=== PATIENT | male | born 1955 | race Caucasian/White ===

== ENCOUNTER → 2017-04-08 | Outpatient (CLI) | payer BC ==
[~2017-04-08] MED LIST: ASPCH81; FLM4 PO; LEVO100T7 PO; NIAC1TAB56 PO; OMEP20CA9 PO; PLV75 PO; ROSU40TA PO; TPRSR/100 PO
[2017-04-08 12:11] LABS: BASO % 0.5 %; BASO ABS # 0.04 K/uL (0-0.2); COMPLETE YES; EOS % 6.7 %; HEMATOCRIT 43.1 % (42-52); IG% 0.1 %; LYMPH % 38.7 %; LYMPH ABS # 3.11 K/uL (1.2-3.4); MEAN CELL VOLUME 91.1 fL (80-100); MEAN CORPUSCULAR HEMOGLOBIN 30.7 pg (25-34); MEAN CORPUSCULAR HGB CONC 33.6 g/dl (32-36); MEAN PLATELET VOLUME 10.7 fL (7.4-10.4); MONO % 13.6 %; NEUT % 40.4 %; PLATELET COUNT 230 K/uL (130-400); RED BLOOD COUNT 4.73 M/uL (4.7-6.1); WHITE BLOOD COUNT 8.03 K/uL (4.8-10.8)
[2017-04-08 12:29] LABS: ALT/SGPT 26 U/L (12-78); BLOOD UREA NITROGEN 13 mg/dl (7-18); BUN/CREATININE RATIO 13.7 (10-20); CALCIUM 8.8 mg/dl (8.5-10.1); CARBON DIOXIDE 25 mmol/L (21-32); CHLORIDE 110 mmol/L (98-107); CHOLESTEROL 148 mg/dl (0-200); CREATININE 0.93 mg/dl (0.60-1.40); GLUCOSE 113 mg/dl (70-99); POTASSIUM 3.9 mmol/L (3.5-5.1); SODIUM 141 mmol/L (136-145); TRIGLYCERIDES 129 mg/dl (0-150); VERY LOW DENSITY LIPOPROT CALC 26 mg/dl
[2017-04-08 12:40] LABS: ALB/GLOB RATIO 1.1 (0.9-2); ALKALINE PHOSPHATASE 49 U/L (45-117); AST/SGOT 27 U/L (15-37); CHOLESTEROL/HDL RATIO 3.3; HDL CHOLESTEROL 45 mg/dl; LDL CHOLESTEROL CALCULATED 77 mg/dl
== END | disposition home or self-care (01) ==
LOC: C.LABBFT 09:27
PROVIDERS: ATTEND Internal Medicine Cardiovascular Disease
DX: Z12.5 Encounter for screening for malignant neoplasm of prostate (principal); I10 Essential (primary) hypertension

== ENCOUNTER → 2017-10-03 | Outpatient (CLI) | payer BC ==
[2017-10-03 12:39] LABS: BASO % 0.5 %; BASO ABS # 0.03 K/uL (0-0.2); EOS % 8.3 %; EOS ABS # 0.55 K/uL (0-0.5); HEMATOCRIT 45.2 % (42-52); HEMOGLOBIN 15.6 g/dL (14.0-18.0); IG# 0.01 K/uL (0.00-0.02); LYMPH % 45.2 %; LYMPH ABS # 3.01 K/uL (1.2-3.4); MEAN CELL VOLUME 91.9 fL (80-100); MEAN CORPUSCULAR HEMOGLOBIN 31.7 pg (25-34); MEAN CORPUSCULAR HGB CONC 34.5 g/dl (32-36); MEAN PLATELET VOLUME 10.8 fL (7.4-10.4); MONO % 11.7 %; MONO ABS # 0.78 K/uL (0.11-0.59); NEUT % 34.1 %; NEUT ABS # 2.28 K/uL (1.4-6.5); PLATELET COUNT 205 K/uL (130-400); RED CELL DISTRIBUTION WIDTH CV 13.5 % (11.5-14.5); RED CELL DISTRIBUTION WIDTH SD 45.1 fL (36.4-46.3); WHITE BLOOD COUNT 6.66 K/uL (4.8-10.8)
[2017-10-03 12:56] LABS: ALBUMIN 3.6 gm/dl (3.4-5.0); ALT/SGPT 31 U/L (12-78); AST/SGOT 27 U/L (15-37); BLOOD UREA NITROGEN 15 mg/dl (7-18); CALCIUM 9.1 mg/dl (8.5-10.1); CARBON DIOXIDE 27 mmol/L (21-32); CREATININE 0.92 mg/dl (0.60-1.40); GLUCOSE 98 mg/dl (70-99); SODIUM 140 mmol/L (136-145)
[2017-10-03 12:58] LABS: ALKALINE PHOSPHATASE 62 U/L (45-117); TOTAL PROTEIN 7.4 gm/dl (6.4-8.2)
[2017-10-04 11:22] LABS: EBV EARLY ANTIGEN AB < 9.00 U/ML
== END | disposition home or self-care (01) ==
LOC: C.LABBFT 09:44
PROVIDERS: ATTEND Nurse Practitioner
DX: R53.83 Other fatigue (principal); K12.1 Other forms of stomatitis; J02.9 Acute pharyngitis, unspecified

== ENCOUNTER → 2018-04-18 | Outpatient (CLI) | payer BC | END | disposition home or self-care (01) | LOC: C.LAB1850 13:09 | PROVIDERS: ATTEND Physician Assistant Medical | DX: E78.5 Hyperlipidemia, unspecified (principal); I25.10 Atherosclerotic heart disease of native coronary artery without angina pectoris ==

== ENCOUNTER 2024-06-08 09:19 | Inpatient (IN) ==
--- NOTE | 2024-06-08 09:59 | Emergency Department Note ---
Impression & Plan Heart block AV second degree, Chest pain on exertion ED Provider Note Name: ANA LAURA HAWKINS Age: 68 Sex: Male Arrives Via: Walk-In Informant: Patient ED Provider: David Gracia MD Chief Complaint: chest pain Impression: as per impressions above Medical Decision Makin-year-old gentleman with a history of CAD and stent 20 years ago. He arrives for evaluation of chest pain and shortness of breath with any exertion over the last 3-4 days. On arrival with no symptoms. EKG is reassuring. Initial labs are reassuring as well. During patient's time in the ER it was noted he at multiple times had development of second-degree heart block with any movement or exertion. Given these findings and his history hospitalist was consulted for further management. Triage/Nursing Notes reviewed by Me Differential:Cardiac ischemia, aortic dissection, pulmonary embolism, pneumothorax, pneumonia, pericarditis, myocarditis, esophageal rupture, GERD, cholecystitis, pancreatitis, musculoskeletal, as well as other pathologies. Vital Signs: reviewed and remarkable for no significant abnormalities Labs:ED labs Reviewed by me and remarkable for no significant abnormalities Imaging:X ray results are stated below per my interpretation: Chest: 1 view: No infiltrate, no effusion, normal cardiac border. EKG:As per my interpretation. Indication chest pain with exertion. Normal sinus rhythm at 63 and a QTc of 431. There is no ectopy nor ischemia. Patient has a right lower branch block. No significant change from 03/28/2023 EKG has a heart rate is slowed. Cardiac/Tele Monitoring: Cardiac Monitoring: An Order was placed for continuous cardiac monitoring. The monitor shows a rate of 60 with a normal sinus rhythm with episodes fo 2nd degree heart block. Consults:Discussed with Dr. Ramirez of [facility] service who will bring in for further management Plan: Disposition:Hospitalization. Condition: Good History of Present Illness: 68-year-old male arrives for evaluation of chest pain. Patient notes exertional chest pain over the last 3 to 4 days. Gradually worsening. Now associated with shortness of breath and dizziness with exertion. Notes he feels like he might pass out. Initially was also only occurring on heavy exertion such as mowing the lawn but now even just going up the stairs makes it worse. Denies any leg swelling or calf pain. No syncope. Denies any current headache, neck pain, fevers, chills, nausea, vomiting, palpitations or other concerning signs or symptoms. Patient notes a history of cardiac disease with an WA about 20 years ago on the bare-metal stent at that time. He takes aspirin 81 mg daily. Takes no other blood thinners. Past Medical History: CAD, dyslipidemia, GERD, hypothyroidism Home Medications:See Below Allergies:nkda Vitals:Blood Pressure: 132/78, Pulse 64, RR 14, T 36.5C, O2 97% on RA Physical Exam: GENERAL: Patient is well appearing and in no acute distress. RESPIRATORY: No dyspnea. Clear to auscultation and equal bilaterally. CARDIOVASCULAR: Regular rate and rhythm.No murmur appreciated. GASTROINTESTINAL: Abdomen soft, non-tender, no peritonitis. EXTREMITIES: Normal motion all extremities, no cyanosis, no edema. NEUROLOGIC: Alert and oriented. No focal neurologic deficits appreciated SKIN: No rash, no jaundice, no diaphoresis. PSYCH: Appropriate GCS: 15 ED Course: Times/Reassessments: stable. development of episodes 2nd degree heart block. David Gracia MD Past Med/Surg History Problem List (Updated 06/08/24 @ 17:52 by David Gracia MD) Chest pain on exertion (Acute) Heart block AV second degree (Acute) AV block Chest discomfort Prostate cancer screening encounter, options and risks discussed Encounter for health maintenance examination History of anterior wall myocardial infarction Elevated fasting glucose Presence of bare metal stent in LAD coronary artery Coronary artery disease Antiplatelet or antithrombotic long-term use Hypertension (Chronic) GERD (gastroesophageal reflux disease) (Chronic) Hypothyroidism (Chronic) Dyslipidemia (Chronic) Cervical neck pain with evidence of disc disease (Acute) Cervical spine degeneration (Acute) Medical History Psoriasis Degenerative disc disease BPH (benign prostatic hyperplasia) GERD (gastroesophageal reflux disease) Hypothyroidism Myocardial Infarction 2007 Hypertension Hyperlipidemia Myocardial infarction Surgical History History of colonoscopy (03/24/19) Dr. Hassan, eladio, recheck 10 years History of tooth extraction History of heart artery stent 2007>[address] MIDDLETON AT [facility] Family History Mother Family history of diabetes mellitus Ovarian cancer Aunt Cancer Leukemia Father Myocardial infarction Other Lung disease Denies family history of Prostate cancer Breast cancer Colorectal cancer Social History Smoking Status: Former smoker Tobacco Type: Cigarettes Cigarettes Per Day: 2.5; Second Hand Exposure: No; Do You Dip or Chew Tobacco: No; Tobacco Cessation Education Requested by Patient: No Hx Alcohol Use: Yes Alcohol type: beer Hx Substance Use: No Preferred Language: Nepalese Communication Ability: Effective Telephone Clerk Telegraph Office Required: No Beliefs That Will Affect Care: None Current Living Situation: Spouse current occupational status: employed 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 [employer] Other Information That Helps Us Care for You: No Feels Safe at Home: Yes Safety Concerns: Feels Safe At This Time Childhood Exposure to Second-Hand Smoke: Yes Diet: regular caffeine: Yes Dental Care, Regularly: Yes Physical Activity Frequency: 5-6 Times per Week Seatbelt Use: never Sunscreen Use: No Assistive Devices: Denture - Upper, Denture - Lower and Glasses Allergies Allergies Allergy/AdvReac Type Severity Reaction Status Date / Time No Known Allergies Allergy Mild Verified 06/08/24 12:42 Home Meds Home Medications Medication Instructions Recorded Confirmed aspirin 81 mg tablet,delayed 81 mg PO HS 03/17/19 06/08/24 release guselkumab 100 mg/mL subcutaneous 100 mg subcut .COMPLEX 04/22/19 06/08/24 syringe tamsulosin 0.4 mg capsule 0.4 mg PO QAM 01/14/24 06/08/24 fluticasone propionate 50 2 spray intranasal QAM 06/08/24 06/08/24 mcg/actuation nasal spray,suspension levothyroxine 125 mcg tablet 125 mcg PO QAM 06/08/24 06/08/24 Previous Rx's Medication Instructions Recorded nitroglycerin 0.4 mg sublingual 0.4 mg sublingual Q5M PRN chest 07/14/20 tablet pain #30 tabs pantoprazole 40 mg tablet,delayed 40 mg PO BID #180 tabs 05/29/21 release rosuvastatin 40 mg tablet (Crestor) 40 mg PO QPM #90 tabs 10/09/23 metoprolol succinate 25 mg 12.5 mg (1/2 x 25 mg) PO DAILY #45 10/31/23 tablet,extended release 24 hr tabs Results & Data (ED) Vital Signs Vital Signs - 24 hr 06/08/24 09:26 06/08/24 09:50 06/08/24 09:50 Temperature 36.5 C Temperature Source Temporal Artery Scan Pulse Rate 64 Pulse Rate [Apical] 65 Pulse Rhythm [Apical] Regular Pulse Strength [Apical] Normal Respiratory Rate 14 18 Respiratory Effort / Characteristics Non-Labored Respiratory Depth Normal Respiratory Pattern Regular Blood Pressure 132/78 Blood Pressure [Right Arm] 150/93 H Blood Pressure Mean 96 Blood Pressure Mean [Right Arm] 112 Blood Pressure Position [Right Arm] Sitting Pulse Oximetry 97 97 Oxygen Delivery Method Room Air Room Air Room Air Sepsis New/Unexplained Change in Mental Status No Sepsis Action Taken by Nursing No Action Required 06/08/24 09:50 06/08/24 10:09 06/08/24 11:20 Temperature Temperature Source Pulse Rate 68 38 L Pulse Rate [Apical] 57 L Pulse Rhythm [Apical] Regular Pulse Strength [Apical] Normal Respiratory Rate 16 Respiratory Effort / Characteristics Non-Labored Respiratory Depth Normal Respiratory Pattern Regular Blood Pressure Blood Pressure [Right Arm] 150/93 H Blood Pressure Mean Blood Pressure Mean [Right Arm] 112 Blood Pressure Position [Right Arm] Lying Pulse Oximetry 97 Oxygen Delivery Method Room Air Sepsis New/Unexplained Change in Mental Status Sepsis Action Taken by Nursing Laboratory Data 06/08/24 Unknown 06/08/24 Unknown Imaging Data Radiologist's Impression: Chest X-Ray 06/08/24 09:56 XR chest 1V portable CLINICAL HISTORY: Chest Pain TECHNIQUE: Single frontal radiograph of the chest was obtained. Comparison: Comparison is made to chest radiograph 09/19/2023 FINDINGS: No lines and tubes are seen. Cardiomegaly is noted. Prominence and cephalization of the vasculature is seen. Previously noted right midlung density is similar in appearance. No evidence of pleural effusion or pneumothorax. IMPRESSION: 1. Cardiomegaly and mild pulmonary edema. 2. Right midlung density is again seen. If there is clinical suspicion for nodule, CT chest performed on a nonemergent basis. ACT 112: Negative or not required by law. Electronically signed by: Manolo Castro M.D. 06/08/2024 10:21 AM Discharge Plan Visit Data Chief Complaint: Cardiac Assessment Stated Complaint: SOB, CHEST TIGHTNESS,DIZZY ED Provider: David Gracia Discharge Problem: Heart block AV second degree, Chest pain on exertion Patient Disposition: Admitted As Inpatient Discharge Instructions Interventions: ED Discharge Assessment Last Done: 06/08/24 13:50
--- NOTE | 2024-06-08 10:22 | XRay Report ---
XR chest 1V portable CLINICAL HISTORY: Chest Pain TECHNIQUE: Single frontal radiograph of the chest was obtained. Comparison: Comparison is made to chest radiograph 09/19/2023 FINDINGS: No lines and tubes are seen. Cardiomegaly is noted. Prominence and cephalization of the vasculature i s seen. Previously noted right midlung density is similar in appearance. No evidence of pleural effus ion or pneumothorax. IMPRESSION: 1. Cardiomegaly and mild pulmonary edema. 2. Right midlung density is again seen. If there is clinical suspicion for nodule, CT chest performe d on a nonemergent basis. ACT 112: Negative or not required by law. Electronically signed by: Manolo Castro M.D. 06/08/2024 10:21 AM
[2024-06-08 10:53] LABS: Basophils # (auto) 0.05 K/uL (0.00-0.20); Basophils % (auto) 0.6 %; Eosinophils % (auto) 10.4 %; Hematocrit (blood only) 43.9 % (42.0-52.0); Hemoglobin 14.3 g/dl (14.0-18.0); Immature Granulocytes # (auto) 0.01 K/uL (0.01-0.20); Immature Granulocytes % (auto) 0.1 %; Lymphocytes # (auto) 2.94 K/uL (1.20-3.40); Lymphocytes % (auto) 38.1 %; Mean Corpuscular Hemoglobin 29.4 pg (25.0-34.0); Mean Corpuscular Hgb Conc 32.6 g/dL (32.0-36.0); Mean Corpuscular Volume 90.3 fL (80.0-100.0); Mean Platelet Volume 10.7 fL (9.4-12.4); Monocytes # (auto) 0.83 K/uL (0.11-0.59); Monocytes % (auto) 10.8 %; Neutrophils # (auto) 3.09 K/uL (1.40-6.50); Platelet Count 252 K/uL (130-400); RDW Coefficient of Variation 13.1 % (11.5-14.5); RDW Standard Deviation 43.4 fL (36.4-46.3); Red Blood Count 4.86 M/uL (4.70-6.10); White Blood Count 7.72 K/ul (4.8-10.8)
[2024-06-08 11:15] LABS: Albumin Level 4.1 gm/dl (3.4-5.0); BUN Creatinine Ratio 16.7 (10-20); Bilirubin Direct 0.1 mg/dl (0-0.2); Bilirubin,Total 0.9 mg/dl (0.2-1.0); Calcium 9.7 mg/dl (8.6-10.3); Creatinine Clr Calc Pharmacy 87.5 ml/min; Magnesium 1.9 mg/dl (1.7-2.4); Potassium 4.4 mmol/L (3.5-5.1); Total Protein 7.2 gm/dl (6.0-8.3)
--- OUTSIDE RECORDS SUMMARY | 2024-06-08 11:49 | External Medical Summary | Summary of Care ---
Author Name Unknown Organization [facility] Address [address] [place] [address] Phone [phone] Care Team Providers Care Health Care Coordinator Name Role Phone Bo Perez MD Primary Care Provider [phone] Reason for Visit * Reason Onset Date Comments Medication Refill 05/12/2024 Encounter Details Date Type Department Care Team (Late st Contact Info) Description 05/12/2024 Refill [facility] [address] [place] [address] Alla Waddell MD [address] [place] [address] Allergies No known active allergiesdocumented as of this encounter (statuses as of 05/13/2024) Medications Medication Sig Dispensed Refills Start Date End Date Status rosuvastatin (CRESTOR) 40 MG Tablet Take 1 Tablet by mouth in the morning. 02/06/2017 Active Aspirin 81 MG Oral Capsule Take by mouth . Active Metoprolol Succinate ER 25 MG Oral Tablet Extended Release 24 Hour (toPROL XL) 0.5 Tablets in the morning. 07/04/2023 Active Levothyroxine Sodium 125 MCG Oral Tablet (Levoxyl) Take 1 Tablet by mouth daily first thing in the morning. (at least 30 min prior to breakfast or other meds) 90 Tablet 3 09/30/2023 Active Fluticasone Propionate 50 MCG/ACT Nasal Suspension (Flonase) Administer 2 Sprays into each nostril in the morning. 9.9 mL 2 03/30/2024 Active Tremfya 100 MG/ML Subcutaneous Solution Prefilled Syringe Inject 100 mg into a large muscle once. Pt take once every 8 weeks Active Pantoprazole Sodium 40 MG Oral Tablet Delayed Release (Protonix) TAKE 1 TABLET BY MOUTH EVERY MORNING AND 1 TABLET AT DINNER TIME 180 Tablet 3 05/12/2024 Active Tamsulosin HCl 0.4 MG Oral Capsule (Flomax) TAKE 1 CAPSULE BY MOUTH EVERY MORNING 90 Capsule 3 05/12/2024 Active Amoxicillin-Pot Clavulanate 875-125 MG Oral Tablet (Augmentin) Take 1 Tablet by mouth in the morning and 1 Tablet before bedtime. 28 Tablet 05/13/2024 Active Amoxicillin-Pot Clavulanate 875-125 MG Oral Tablet (Augmentin) Take 1 Tablet by mouth in the morning and 1 Tablet before bedtime. Do all this for 14 days. 28 Tablet 04/24/2024 Discontinue d(Refill) documented as of this encounter (statuses as of 05/13/2024) Active Problems Problem Noted Date Diagnosed Date Presence of bare metal stent in LAD coronary art marie 07/04/2023 Umbilical hernia without obstruction and without gangrene 07/04/2023 Prediabetes 09/24/2022 Psoriasis 03/21/2022 Gastroesophageal reflux disease without esophagi tis 03/18/2022 BPH with obstruction/lower urinary tract symptom s 03/18/2022 Dyslipidemia 03/18/2022 Acquired hypothyroidism 03/18/2022 Old VT (myocardial infarction) 03/18/2022 Coronary artery disease invo lving [place] coronary artery of [place] heart without angina pectoris 03/18/2022 Obesity, Class I, BMI 30.0-34.9 (see actual BMI) 03/18/2022 documented as of this encounter (statuses as of 05/13/2024) Resolved Problems Problem Noted Date Diagnosed Date Resolved Date History of tobacco use 07/04/202309/29 documented as of this encounter (statuses as of 05/13/2024) Social History Tobacco Use Types Packs/Day Years Used Date Smoking Tobacco: Former Cigarettes Q uit: 09/02/2011 Smokeless Tobacco: Never Alcohol Use Standard Drinks/Week Comments Yes 0 (1 standard drink = 0.6 oz pur e alcohol) beer on occasion Utilities Answer Date Recorded Do you have trouble paying y our heating, water, or electric bill? (Adult - for ages 18 years and over) Not on file 02/18/2024 Is your family able to pay t he heat, water, or electric bill? (Household - for ages 0-17 years) Not on file 02/18/2024 Does your family have access to good internet? (Household - for ages 0-17 years) Not on file 02/18/2024 Social Connections Answer Date Recorded How often do you feel lonely or isolated from those around you? (Adult - for ages 18 years and over) Not on file 02/18/2024 Sex and Gender Information Value Date Recorded Sex Assigned at Not on file Gender Identity Not on file Sexual Orientation Not on file Job Start Date Occupation Industry Not on file Not on file Not on file documented as of this encounter Miscellaneous Notes * Telephone Encounter - Bo Perez MD - 05/13/2024 12:04 PM EDTSigned Prescriptions: Disp Refills Amoxicillin-Pot Clavulanate 875-125 MG Ora*28 Tab*0 Sig: Take 1 Tablet by mouth in the morning and 1 Tablet before bedtime. Authorizing Provider: BO PEREZ * Telephone Encounter - Jyotsna Cabrera LPN - 05/13/2024 11:35 AM EDTPending Prescriptions: Disp Refills Amoxicillin-Pot Clavulanate 875-125 MG Ora*28 Tab*0 Sig: Take 1 Tablet by mouth in the morning and 1 Tablet before bedtime. * Telephone Encounter - Jyotsna Cabrera LPN - 05/13/2024 11:31 AM EDT Did you pend patient's preferred pharmacy and medication before forwarding?yes Pharmacy: [id number] [facility] Pending Prescriptions: Disp Refills Amoxicillin-Pot Clavulanate 875-125 MG Or*28 Tab*0 Sig: Take 1 Tablet by mouth in the morning and 1 Tablet before bedtime. Last Visit: 04/24/2024 (in office), Visit date not found (telemedicine) Next Visit: Visit date not found If no future appointments scheduled, and last appointment is greater than a year ago, please schedule patient for a follow-up appointment Last date the medication was ordered: 04/24/2024 Is this request for a controlled substance?No Urine Drug Screen:No results found for this or any previous visit. Patient Phone Numbers Labs: Lab Results Component Value Date/Time CREAT 1.0 09/24/2022 01:38 PM POTASSIUM 4.1 09/24/2022 01:38 PM TSH 12.30 (H) 09/30/2023 10:37 AM LDL 87 09/24/2022 01:38 PM ALT 22 09/24/2022 01:38 PM HGBA1C 5.9 (H) 09/30/2023 10:37 AM * Telephone Encounter - Magdalena Carmona - 05/13/2024 10:33 AM EDTPending Prescriptions: Disp Refills Amoxicillin-Pot Clavulanate 875-125 MG Ora*28 Tab*0 Sig: Take 1Tablet by mouth in the morning and 1 Tablet before bedtime. documented in this encounter Plan of Treatment Upcoming Encounters Date Type Department Care Team (Late st Contact Info) Description 07/08/2024 10:30 AM EST Office Visit Care at Home [address] [facility] [place] [address] Leslie Gonzales PA-C [address] [place] [address] 10/05/2024 10:20 AM EST Office Visit Family Practice [facility] [address] [place] [address] Bo Perez MD [address] [place] [address] Health Maintenance Due Date Last Done Comments Depression Screening 1968 DTap/Tdap Vaccines (1 - Tdap) 1975 Cologuard 2001 Fecal Occult Blood Test 2001 Sigmoidoscopy 2001 Pneumococcal Vaccine: 65+ Years (1 of 1 - PCV) 2021 COVID-19 Vaccine ( season) 2024 07/18/2022, 08/29/2021, 2021, Additional history exists Influenza Vaccine (FLU shot) (#1) 2024 08/07/2023, 07/18/2022, 07/18/2022, Additional history exists Adult Wellness Visit 07/03/2024 07/03/2023 HbA1c 09/30/2024 09/30/2023, 09/24/2022 TSH 09/30/2024 09/30/2023, 09/24/2022 Colonoscopy 03/24/2029 03/24/2019 Colorectal Cancer Screening 03/24/2029 Zoster Vaccines Completed 08/15/2020, 05/31/2020 AAA Screening Completed 02/18/2024 HPV (Gardasil) Vaccine Aged Out No lo nger eligible based on patient's age to complete this topic Hepatitis B Vaccine Aged Out No longe r eligible based on patient's age to complete this topic Hepatitis C Screening Discontinued MENINGOCOCCAL (MENACTRA/MENVEO) Aged Out No longer eligible based on patient's age to complete this topic documented as of this encounter Medical Devices Not on filedocumented as of this encounter Care Teams Health Care Coordinator Relationship Specialty Start Date End Date Bo Perez MD [address] [place] [address] PCP - General Family Medicine 03/21/22 documented as of this encounter
--- OUTSIDE RECORDS SUMMARY | 2024-06-08 11:49 | External Medical Summary | Summary of Care ---
Author Name Unknown Organization [facility] Address [address] [place] [address] Phone [phone] Care Team Providers Care Lumber Grader Name Role Phone Gonzalo Taylor MD Primary Care Provider [phone] Reason for Visit * Reason Onset Date Comments Health Maintenance 02/03/2024 Encounter Details Date Type Department Care Team (Late st Contact Info) Description 02/03/2024 Telephone [facility] [address] [phone] Gonzalo Taylor MD [address] [place] [address] Health Maintenance Allergies No known active allergiesdocumented as of this encounter (statuses as of 02/03/2024) Medications Medication Sig Dispensed Refills Start Date End Date Status Niacin ER, Antihyperlipidemic, 1000 MG TBCR Take 1 Tablet by mouth. 01/26/2017 Active rosuvastatin (CRESTOR) 40 MG Tablet Take 1 Tablet by mouth in the morning. 02/06/2017 Active Aspirin 81 MG Oral Capsule Take by mouth . Active Benzonatate 100 MG Oral Capsule (Tessalon Perles) Take 1 Capsule by mouth 3 times a day as needed for Cough. Do not cut, crush, or chew. 50 Capsule 1 09/24/2022 Active Tamsulosin HCl 0.4 MG Oral Capsule (Flomax) take 1 capsule by mouth every morning 90 Capsule 3 05/16/2023 Active Metoprolol Succinate ER 25 MG Oral Tablet Extended Release 24 Hour (toPROL XL) 0.5 Tablets in the morning. 07/04/2023 Active Levothyroxine Sodium 125 MCG Oral Tablet (Levoxyl) Take 1 Tablet by mouth daily first thing in the morning. (at least 30 min prior to breakfast or other meds) 90 Tablet 3 09/30/2023 Active guaiFENesin-Codeine 100-10 MG/5ML Oral Syrup (Robitussin AC)Indications:Acut e cough Take 5 mL by mouth every 4 hours as needed for Cough. 120 mL 10/22/2023 Active Pantoprazole Sodium 40 MG Oral Tablet Delayed Release (Protonix) TAKE 1 TABLET BY MOUTH EVERY MORNING AND 1 TABLET AT DINNER TIME 180 Tablet 1 11/15/2023 Active documented as of this encounter (statuses as of 02/03/2024) Active Problems Problem Noted Date Diagnosed Date Presence of bare metal stent in LAD coronary art marie 07/04/2023 Umbilical hernia without obstruction and without gangrene 07/04/2023 Prediabetes 09/24/2022 Psoriasis 03/21/2022 Gastroesophageal reflux disease without esophagi tis 03/18/2022 BPH with obstruction/lower urinary tract symptom s 03/18/2022 Dyslipidemia 03/18/2022 Acquired hypothyroidism 03/18/2022 Old GA (myocardial infarction) 03/18/2022 Coronary artery disease invo lving pauma coronary artery of pauma heart without angina pectoris 03/18/2022 Obesity, Class I, BMI 30.0-34.9 (see actual BMI) 03/18/2022 documented as of this encounter (statuses as of 02/03/2024) Resolved Problems Problem Noted Date Diagnosed Date Resolved Date History of tobacco use 07/04/202309/29 documented as of this encounter (statuses as of 02/03/2024) Social History Tobacco Use Types Packs/Day Years Used Date Smoking Tobacco: Former Cigarettes Q uit: 09/02/2011 Smokeless Tobacco: Never Alcohol Use Standard Drinks/Week Comments Yes 0 (1 standard drink = 0.6 oz pur e alcohol) beer on occasion Sex and Gender Information Value Date Recorded Sex Assigned at Not on file Gender Identity Not on file Sexual Orientation Not on file Job Start Date Occupation Industry Not on file Not on file Not on file documented as of this encounter Miscellaneous Notes * Telephone Encounter - Jing Peña LPN - 02/03/2024 9:06 AM EDT Care Gaps Comprehensive Care Outreach Last Office/Telemedicine Visit: 09/30/2023 (in office), Visit date not found (telemedicine) Next Office Visit: 03/30/2024 Hemoglobin AIC Results: Lab Results Component Value Date/Time HEMOGLOBIN A1C - [facility] 5.9 (H) 09/30/2023 10:37 AM HEMOGLOBIN A1C - [facility] 5.8 (H) 09/24/2022 01:38 PM BP Readings from Last 1 Encounters: 09/30/23 128/84 Reviewed Health Maintenance below: Health Maintenance Topic Date Due Depression Screening Never done Hepatitis C Screening Never done DTaP,Tdap,and Td Vaccines (1 - Tdap) Never done Colorectal Cancer Screening Never done AAA Screening Never done Pneumococcal Vaccine: 65+ Years (1 of 1 - PCV) Never done COVID-19 Vaccine ( season) 2023 Colon 2019 ri satish requested Aaa scheduled Care Gap Outreach Action Taken: Spoke to patient documented in this encounter Plan of Treatment Upcoming Encounters Date Type Department Care Team (Late st Contact Info) Description 02/18/2024 9:30 AM EDT Imaging Radiology [facility] [address] [facility] [place] [address] 03/30/2024 4:00 PM EDT Office Visit Family Practice [facility] [address] [facility] [place] [address] Gonzalo Taylor MD [address] [facility] [place] [address] 07/08/2024 10:30 AM EST [facility] [address] [facility] [address] Leslie Gonzales [facility]-C [address] [facility] [address] Scheduled Orders Name Type Priority Associated Diagnoses Orde r Schedule US AAA SCREEN, RADIOLOGY Medical Imaging Routine Screening for AAA (aortic abdominal aneurysm) History of smoking Expected: 02/03/2024, Expires: 02/02/2025 Health Maintenance Due Date Last Done Comments Depression Screening 1968 Hepatitis C Screening 1974 DTaP,Tdap,and Td Vaccines (1 - Tdap) 1975 Cologuard 2001 Colonoscopy 2001 Colorectal Cancer Screening 2001 Fecal Occult Blood Test 2001 Sigmoidoscopy 2001 AAA Screening 2021 Pneumococcal Vaccine: 65+ Years (1 of 1 - PCV) 2021 COVID-19 Vaccine ( - 2022-24 season) 2023 07/18/2022, 08/29/2021, 2021, Additional history exists HbA1c 09/30/2024 09/30/2023, 09/24/2022 TSH 09/30/2024 09/30/2023, 09/24/2022 Zoster Vaccines Completed 08/15/2020, 05/31/2020 Influenza Vaccine (FLU shot) Completed 01/2023, 07/18/2022, 07/18/2022, Additional history exists GARDASIL-HPV IMMUNIZATION SERIES Aged Out No longer eligible based on patient's age to complete this topic Hepatitis B Aged Out No longer eligi ble based on patient's age to complete this topic MENINGOCOCCAL (MENACTRA/MENVEO) Aged Out No longer eligible based on patient's age to complete this topic documented as of this encounter Medical Devices Not on filedocumented as of this encounter Visit Diagnoses Diagnosis Screening for AAA (aortic abdominal aneurysm)- Primary Screening for other and unspecified cardiovascular conditions History of smoking Personal history of tobacco use, presenting hazards to health documented in this encounter Care Teams Lumber Grader Relationship Specialty Start Date End Date Gonzalo Taylor MD [address] [place] [address] PCP - General Family Medicine 03/21/22 documented as of this encounter
--- OUTSIDE RECORDS SUMMARY | 2024-06-08 11:49 | External Medical Summary | Summary of Care ---
Author Name Unknown Organization [facility] Address [address] [place] [address] Phone [phone] Care Team Providers Care Direct Care Specialist Name Role Phone Gonzalo Taylor MD Primary Care Provider [phone] Reason for Visit * Reason Comments Acute Pt here today with a n abbess tooth on the left bottom. Encounter Details Date Type Department Care Team (Late st Contact Info) Description 04/24/2024 8:40 AM EDT Office Visit [facility] [address] [place] [address] Alla Waddell MD [address] [place] [address] Infected tooth*; Need for pneumococcal vaccination; Risk and functional assessment; Prediabetes; Old NH (myocardial infarction) Allergies No known active allergiesdocumented as of this encounter (statuses as of 04/24/2024) Medications Medication Sig Dispensed Refills Start Date End Date Status rosuvastatin (CRESTOR) 40 MG Tablet Take 1 Tablet by mouth in the morning. 02/06/2017 Active Aspirin 81 MG Oral Capsule Take by mouth . Active Tamsulosin HCl 0.4 MG Oral Capsule [...] other meds) 90 Tablet 3 09/30/2023 Active Pantoprazole Sodium 40 MG Oral Tablet Delayed Release (Protonix) TAKE 1 TABLET BY MOUTH EVERY MORNING AND 1 TABLET AT DINNER TIME 180 Tablet 1 11/15/2023 Active Fluticasone Propionate 50 MCG/ACT Nasal Suspension (Flonase) Administer 2 Sprays into each nostril in the morning. 9.9 mL 2 03/30/2024 Active Tremfya 100 MG/ML Subcutaneous Solution Prefilled Syringe Inject 100 mg into a large muscle once. Pt take once every 8 weeks Active Amoxicillin-Pot Clavulanate 875-125 MG Oral Tablet (Augmentin) Take 1 Tablet by mouth in the morning and 1 Tablet before bedtime. Do all this for 14 days. 28 Tablet 04/24/2024 4 Active Niacin ER, Antihyperlipidemic , 1000 MG TBCR Take 1 Tablet by mouth. 01/26/2017 4 Discontinue d(Patient preference/ discontinua tion) documented as of this encounter (statuses as of 04/24/2024) Active Problems Problem Noted Date Diagnosed Date Presence of bare metal stent in LAD coronary art marie 07/04/2023 Umbilical hernia without obstruction and without gangrene 07/04/2023 Prediabetes 09/24/2022 Psoriasis 03/21/2022 Gastroesophageal reflux disease without esophagi tis 03/18/2022 BPH with obstruction/lower urinary tract symptom s 03/18/2022 Dyslipidemia 03/18/2022 Acquired hypothyroidism 03/18/2022 Old NH (myocardial infarction) 03/18/2022 Coronary artery disease invo [place]ving [place] coronary artery of [place] heart without angina pectoris 03/18/2022 Obesity, Class I, BMI 30.0-34.9 (see actual BMI) 03/18/2022 documented as of this encounter (statuses as of 04/24/2024) Resolved Problems Problem Noted Date Diagnosed Date Resolved Date History of tobacco use 07/04/202309/29 documented as of this encounter (statuses as of 04/24/2024) Social History Tobacco Use Types Packs/Day Years [...] on file documented as of this encounter Last Filed Vital Signs Vital Sign Reading Time Taken Comments Blood Pressure 128/80 04/24/2024 8:34 AM EDT Pulse 66 04/24/2024 8:34 AM EDT Temperature 35.4 C (95.7 F) 04/24/2024 8:34 AM ED T Respiratory Rate 18 04/24/2024 8:34 AM EDT Oxygen Saturation 100% 04/24/2024 8:34 AM EDT Inhaled Oxygen Concentration - - Weight 95.7 kg (211 lb) 04/24/2024 8:34 AM EDT Height - - Body Mass Index 33.05 09/30/2023 10:14 AM EST documented in this encounter Patient Instructions * Patient Instructions* Erin Acosta LPN - 04/24/2024 8:36 AM EDT ~~PATIENT INSTRUCTIONS FOR PNEUMOCOCCAL VACCINE~~ Possible side effects of pneumococcal vaccine, (pneumonia shot), are usually mild and can include: 1. Soreness or redness at injection site 2. Low grade fever 3. Body aches You may use Tylenol/Acetaminophen as needed for these symptoms. LET YOUR DOCTOR KNOW IMMEDIATELY IF YOU HAVE DIFFICULTY BREATHING OR SWALLOWING, EXPERIENCE ITCHINGOF FEET OR HANDS, HAVE SWELLING OF EYES, FACE OR INSIDE OF NOSE. Patient Instructions - Fall Prevention (This education is for all patients over 65 regardless of symptoms) Remember to take your current medications as prescribed. In order to prevent falls, you are encouraged to: Exercise Utilize assistive/adaptive devices Avoid multifocal lenses when walking Avoid hazards in home Maintain a regular toileting schedule Any questions please contact our office. Preventing Falls in the Home (This education is for all patients over 65 regardless of symptoms) As you get older, falls are more likely. Thats because your reaction time slows. Your muscles and joints may also get stiffer, making them less flexible. Illness, medications, and vision changes can also affect your balance. A fall could leave you unable to live on your own. To make your home safer, follow these tips: Floors Put nonskid pads under area rugs Remove throw rugs Replace worn floor coverings Tack carpets firmly to each step on carpeted stairs. Put nonskid strips on the edges of uncarpeted stairs Keep floors and stairs free of clutter and cords Arrange furniture so there are clear pathways Clean up any spills right away Bathrooms Install grab bars in the tub or shower Apply nonskid strips or put a nonskid rubber mat in the tub or shower Sit on a bath chair to bathe Use bathmats with nonskid backing Lighting Keep a flashlight in each room Put a nightlight along the pathway between the bedroom and the bathroom [employer] Patient Education Copyright 2008 - 2010 [employer] except where otherwise noted Preventing Falls: Exercises to Improve Balance, Flexibility, Strength, and Staying Power (This education is for all patients over 65 regardless of symptoms) Certain types of exercises may help make you less likely to fall. Try the ones below. Or do other exercises that your healthcare provider suggests. Depending on your health, you may need to start slowly. Dont let that stop you. Even small amounts of exercise can help you. Be sure to talk to yourhealthcare provider before starting any exercise program. Improve Balance Many types of exercise can help improve balance. Roland chi and yoga are good examples. Heres another one to try. You can do it anytime and almost anywhere. Stand next to a counter or solid support. Push yourself up onto your tiptoes. Hold for 5 seconds. If you start to lose your balance, hold on to the counter. Rest and repeat 5 times. Work up to holding for 20 to 30 seconds, if you can. Increase Flexibility Being more flexible makes it easier for you to move around safely. Try exercises like the seated hamstring stretch. Sit in a chair and put one foot on a stool. Straighten your leg and reach with both hands down either side of your leg. Reach as far down your leg as you can. Hold for about 20 seconds. Go back to the starting position. Then repeat 5 times. Switch legs. Build Strength Resistance exercises help build strength. You can do them without equipment. Or you can use weights, elastic bands, or special machines. One such exercise is called the biceps curl. You can hold a 1 pound weight or even a can of soup. Do this exercise at least 3 times a week. Strive for everyday. Sit up straight in a chair. Keep your elbow close to your body and your wrist straight. Bend your arm, moving your hand up to your shoulder. Then slowly lower your arm. Repeat 5 times. Switch to the other arm. Build Your Staying Power Aerobic exercises make your heart and lungs stronger so you can keep moving longer. Walking and swimming are two of the best types of exercises you can do. Using a stationary bike is great, too. Find an aerobic exercise that you enjoy. Start slowly and build up. Even 5 minutes is helpful. Aimfor a goal of 30 minutes, at least 3 times a week. You dont have to do 30 minutes in one session. Break it up and walk a little throughout the day. More Helpful Tips Start easy. Slowly work up to doing more. Talk with your healthcare provider about the best exercises for you. Call senior centers or health clubs about exercise programs. If needed, have a family member watch you walk every so often to check your stability. Exercise with a friend. Choose an activity you both enjoy. Try exercises that you can do anytime, anywhere. Here are two examples. Have someone with you when you first try these: Practice walking by placing one foot right in front of the other. Stand up and sit down 10 times. Repeat this throughout the day. [employer] Patient Education Copyright 2009 - 2010 [employer] except where otherwise noted. Preventing Falls: Moving Safely Using a Cane or Walker (This education is for all patients over 65 regardless of symptoms) Keep the cane away from your feet so you dont trip. A walking aid, such as a cane or walker, can help you stay more independent and avoid falls. Remember to keep your walking aid within easy reach when youre in a chair or in bed. And learn how to use it safely so you dont injure yourself. Using a Cane If you have a stronger side, hold the cane on that side. Get your balance. Move the cane and your weaker leg forward. Support your weight on both the cane and your weaker side. Step with your stronger leg. Start again from step 1. If youre using a folding walker, be sure you know how to lock it open. Check that its locked open before each use. Using a Walker Roll the walker (or lift it, if youre using one without wheels) forward about 12 inches. Step forward with your weaker leg first. Use the walker to help keep your balance. Bring your other foot forward to the center of the walker. Start again from step 1. Helpful Tips Check with your healthcare provider about the right walking aid to use. Ask about a walker with a seat attached. Check the tips of your cane or walker to make sure they have nonskid covers. Move slowly from room to room. Dont paredes. Sit down to get dressed. Use a cas pack or backpack to keep your hands free. Get help for jobs that mean climbing, even on a stepstool. [employer] Patient Education Copyright 2008 - 2010 [employer] except where otherwise noted. Treating Urinary Incontinence in Men (This education is for all patients over 65 regardless of symptoms) You can't always control the release of urine. You may leak urine. Or you may not be able to hold your urine until you can get to a bathroom. This is called urinary incontinence. The problem can be managed. Talk to your doctor about your treatment options. Taking Medications Prescription medications may help you. They may: Help the sphincter to work better. (This is the muscle that closes to keep urine from leaking out of the bladder.) Help stop the bladder from michelle too often to push urine out. Help the bladder muscles contract with more force. Help relax the sphincter muscle and allow urine to flow more freely. Making Changes to Your Routine Certain changes in your daily routine may help. These include: Avoiding caffeine and alcohol. Using timed voiding. This is following a schedule for drinking fluids and urinating. Doing Kegel exercises daily. These exercises involve tightening the muscles in your sphincter and around your bladder to help strengthen them. Your doctor can explain how to do them. Using a Catheter A catheter is a narrow tube that is inserted through the urethra into the bladder. It drains urine.A condom catheter covers the penis. It channels urine into a collection bag. It is worn most of thetime. Intermittent catheterization means inserting a catheter to drain the bladder, then removing it. This is done on a regular schedule. Having Surgery If other options don't work, surgery may be recommended. If surgery is an option, your healthcare provider can discuss it with you and explain its risks and benefits. Healing After Prostate Surgery Surgery on the prostate gland can cause incontinence. Most often, the incontinence is only for a short time. It clears up when healing is complete. Very rarely, prostate surgery can result in permanent incontinence. documented in this encounter Progress Notes * Alla Waddell MD - 04/24/2024 8:53 AM EDT Images from the original note were not included. Subjective Krunal Escalante is a 68 year old male. Chief Complaint Patient presents with Acute Pt here today with an abbess tooth on the left bottom. HPI: Here for lt lower infected tooth Has partial denture No recent dental clinic visit since he has only several tooth left Known preDM, diet education Hba1c 5.9 Hx of NH, stable PMH: Patient Active Problem List Diagnosis Gastroesophageal reflux disease without esophagitis BPH with obstruction/lower urinary tract symptoms Dyslipidemia Acquired hypothyroidism Old NH (myocardial infarction) Coronary artery disease involving [place] coronary artery of [place] heart without angina pectoris Obesity, Class I, BMI 30.0-34.9 (see actual BMI) Psoriasis Prediabetes Presence of bare metal stent in LAD coronary artery Umbilical hernia without obstruction and without gangrene Current Outpatient Medications Medication Sig Dispense Refill rosuvastatin (CRESTOR) 40 MG Tablet Take 1 Tablet by mouth in the morning. Aspirin 81 MG Oral Capsule Take by mouth . Tamsulosin HCl 0.4 MG Oral Capsule (Flomax) take 1 capsule by mouth every morning 90 Capsule 3 Metoprolol Succinate ER 25 MG Oral Tablet Extended Release 24 Hour (toPROL XL) 0.5 Tablets in the morning. Levothyroxine Sodium 125 MCG Oral Tablet (Levoxyl) Take 1 Tablet by mouth daily first thing in the morning. (at least 30 min prior to breakfast or other meds) 90 Tablet 3 Pantoprazole Sodium 40 MG Oral Tablet Delayed Release (Protonix) TAKE 1 TABLET BY MOUTH EVERY MORNING AND 1 TABLET AT DINNER TIME 180 Tablet 1 Fluticasone Propionate 50 MCG/ACT Nasal Suspension (Flonase) Administer 2 Sprays into each nostril in the morning. 9.9 mL 2 Amoxicillin-Pot Clavulanate 875-125 MG Oral Tablet (Augmentin) Take 1 Tablet by mouth in the morning and 1 Tablet before bedtime. Do all this for 14 days. 28 Tablet 0 Tremfya 100 MG/ML Subcutaneous Solution Prefilled Syringe Inject 100 mg into a large muscle once. Pt take once every 8 weeks No current facility-administered medications for this visit. Past Medical History: Diagnosis Date Acquired hypothyroidism 03/18/2022 BPH with obstruction/lower urinary tract symptoms 03/18/2022 Coronary artery disease involving [place] coronary artery of [place] heart without angina pectoris 03/18/2022 Dyslipidemia 03/18/2022 Gastroesophageal reflux disease without esophagitis 03/18/2022 Obesity, Class I, BMI 30.0-34.9 (see actual BMI) 03/18/2022 Old NH (myocardial infarction) 03/18/2022 Prediabetes 09/24/2022 Psoriasis 03/21/2022 No past surgical history on file. Review of patient's allergies indicates: No Known Allergies No family history on file. No family status information on file. Social History Socioeconomic History Marital status: Spouse name: Not on file Number of children: Not on file Years of education: Not on file Highest education level: Not on file Occupational History Not on file Tobacco Use Smoking status: Former Current packs/day: 0.00 Types: Cigarettes Quit date: 09/02/2011 Years since quittin.6 Smokeless tobacco: Never Substance and Sexual Activity Alcohol use: Yes Comment: beer on occasion Drug use: No Sexual activity: Not on file Other Topics Concern Not on file Social History Narrative Not on file Social Determinants of Health Financial Resource Strain: Not on file Food Insecurity: Not on file Transportation Needs: Not on file Social Connections: Unknown (02/18/2024) Social Connections How often do you feel lonely or isolated from those around you? (Adult - for ages 18 years and over): Not on file Housing Stability: Not on file Review of Systems Constitutional: Negative for activity change, appetite change, chills, diaphoresis, fatigue, fever and unexpected weight change. HENT: Positive for dental problem. Respiratory: Negative for cough, chest tightness, shortness of breath and wheezing. Cardiovascular: Negative for chest pain, palpitations and leg swelling. Neurological: Negative for dizziness, light-headedness and headaches. Psychiatric/Behavioral: Negative for agitation and behavioral problems. Objective BP 128/80 | Pulse 66 | Temp 35.4 C (95.7 F) (Tympanic) | Resp 18 | Wt 95.7 kg (211 lb) | SpO2 100% | BMI 33.05 kg/m | BSA 2.13 m Physical Exam Constitutional: General: He is not in acute distress. Appearance: Normal appearance. He is not ill-appearing, toxic-appearing or diaphoretic. HENT: Head: Normocephalic and atraumatic. Nose: Nose normal. Mouth/Throat: Eyes: Extraocular Movements: Extraocular movements intact. Neurological: Mental Status: He is alert and oriented to person, place, and time. Psychiatric: Behavior: Behavior normal. ASSESSMENT/PLAN: Infected tooth (Primary) Need for pneumococcal vaccination Risk and functional assessment Prediabetes Old NH (myocardial infarction) Other orders - Amoxicillin-Pot Clavulanate 875-125 MG Oral Tablet (Augmentin); Take 1 Tablet by mouth in the morning and 1 Tablet before bedtime. Do all this for 14 days. Augmentin with probiotic And f/u with dentist Alla Waddell MD documented in this encounter Nursing Notes * Erni Acosta LPN - 04/24/2024 8:31 AM EDT Chief Complaint Patient presents with Acute Pt here today with an abbess tooth on the left bottom. documented in this encounter Plan of Treatment Upcoming Encounters Date Type Department Care Team (Late st Contact Info) Description 07/08/2024 10:30 AM EST Office Visit Care at Home [address], [place] [phone] Leslie Gonzales PA-C [address] [place], [place] [id number] 10/05/2024 10:20 AM EST Office Visit Family Practice [facility] [address] [place] [address] Gonzalo Taylor MD [address] [place] [address] Health Maintenance Due Date Last Done Comments Depression Screening 1968 DTaP,Tdap,and Td Vaccines (1 - Tdap) 1975 Cologuard 2001 Fecal Occult Blood Test 2001 Sigmoidoscopy 2001 Pneumococcal Vaccine: 65+ Years (1 of 1 - PCV) 2021 COVID-19 Vaccine ( season) 2023 07/18/2022, 08/29/2021, 2021, Additional history exists Influenza [...] as of this encounter Visit Diagnoses Diagnosis Infected tooth- Primary Acute apical periodontitis of pulpal origin Need for pneumococcal vaccination Need for prophylactic vaccination against streptococcus pneumoniae (pneumococcus) Risk and functional assessment Screening for unspecified condition Prediabetes Other abnormal glucose Old NH (myocardial infarction) Old myocardial infarction documented in this encounter Care Teams Direct Care Specialist Relationship Specialty Start Date End Date Gonzalo Taylor MD [address] [place] [address] PCP - General Family Medicine 03/21/22 documented as of this encounter"
--- OUTSIDE RECORDS SUMMARY | 2024-06-08 11:49 | External Medical Summary | Summary of Care ---
Author Name Unknown Organization [facility] Address [address] [place] [address] Phone [phone] Care Team Providers Care Respiratory Assistant Name Role Phone Bo Perez MD Primary Care Provider [phone] Reason for Visit * Reason Comments eRx-Medication Refill Encounter Details Date Type Department Care Team (Late st Contact Info) Description 05/11/2024 Refill Family Practice [facility] [address] [facility] [place] [phone] Bo Perez MD [address] [facility] [place] [address] Allergies No known active allergiesdocumented as of this encounter (statuses as of 05/12/2024) Medications Medication Sig Dispensed Refills Start Date [...] EVERY MORNING 90 Capsule 3 05/12/2024 Active Tamsulosin HCl 0.4 MG Oral Capsule (Flomax) take 1 capsule by mouth every morning 90 Capsule 3 05/16/2023 4 Discontinued Pantoprazole Sodium 40 MG Oral Tablet Delayed Release (Protonix) TAKE 1 TABLET BY MOUTH EVERY MORNING AND 1 TABLET AT DINNER TIME 180 Tablet 1 11/15/2023 4 Discontinued documented as of this encounter (statuses as of 05/12/2024) Active Problems Problem Noted Date Diagnosed Date Presence of bare metal stent in LAD coronary art marie 07/04/2023 Umbilical hernia without obstruction and without gangrene 07/04/2023 Prediabetes 09/24/2022 Psoriasis 03/21/2022 Gastroesophageal reflux disease without esophagi tis 03/18/2022 BPH with obstruction/lower urinary tract symptom s 03/18/2022 Dyslipidemia 03/18/2022 Acquired hypothyroidism 03/18/2022 Old [place] (myocardial infarction) 03/18/2022 Coronary artery disease invo lving [place] coronary artery of [place] heart without angina pectoris 03/18/2022 Obesity, Class I, BMI 30.0-34.9 (see actual BMI) 03/18/2022 documented as of this encounter (statuses as of 05/12/2024) Resolved Problems Problem Noted Date Diagnosed Date Resolved Date History of tobacco use 07/04/202309/29 documented as of this encounter (statuses as of 05/12/2024) Social History Tobacco Use Types Packs/Day Years [...] encounter Miscellaneous Notes * Telephone Encounter - Gregory Richter RPh - 05/12/2024 2:09 PM EDT Signed Prescriptions: Disp Refills Pantoprazole Sodium 40 MG Oral Tablet Valerie*180 Ta*3 Sig: TAKE 1 TABLET BY MOUTH EVERY MORNING AND 1 TABLET AT DINNER TIMEAuthorizing Provider: BO PEREZ User: GREGORY RICHTER Tamsulosin HCl 0.4 MG Oral Capsule (Flomax)90 Cap*3 Sig: TAKE 1CAPSULE BY MOUTH EVERY MORNINGAuthorizing Provider: BO PEREZ User: GREGORY RICHTER documented in this encounter Plan of Treatment Upcoming Encounters Date Type Department Care Team (Late st Contact Info) Description 07/08/2024 10:30 AM EST Office Visit Care at Home [address] [place] [id number] Leslie Gonzales PA-C [address] [place] [phone] 10/05/2024 10:20 AM EST Office Visit Family Practice [facility] [address] [place] [address] Bo Perez MD [address] [place] [address] Health Maintenance Due Date Last Done Comments Depression Screening 1968 DTap/Tdap Vaccines (1 - Tdap) 1975 Cologuard 2001 Fecal Occult Blood Test 2001 Sigmoidoscopy 2001 Pneumococcal Vaccine: 65+ Years (1 of 1 - PCV) 2021 COVID-19 Vaccine (2022- season) 2024 07/18/2022, 08/29/2021, 2021, Additional history [...] filedocumented as of this encounter Care Teams Respiratory Assistant Relationship Specialty Start Date End Date Bo Perez MD [address] [place] [address] PCP - General Family Medicine 03/21/22 documented as of this encounter
--- OUTSIDE RECORDS SUMMARY | 2024-06-08 11:49 | External Medical Summary | Summary of Care ---
Author Name Unknown Organization [facility] Address [address] [place] [address] Phone [phone] Care Team Providers Care Guide Alpine Name Role Phone Gonzalo Taylor MD Primary Care Provider [phone] Encounter Details Date Type Department Care Team (Late st Contact Info) Description 02/04/2024 Orders Only Family Practice [facility] [address] [facility] [place] [address] Gonzalo Taylor [facility] [address] [facility] [address] Allergies No known active allergiesdocumented as of this encounter (statuses as of 02/04/2024) Medications Medication Sig Dispensed Refills Start Date [...] as of this encounter (statuses as of 02/04/2024) Active Problems Problem Noted Date Diagnosed Date Presence of bare metal stent in LAD coronary art marie 07/04/2023 Umbilical hernia without obstruction and without gangrene 07/04/2023 Prediabetes 09/24/2022 Psoriasis 03/21/2022 Gastroesophageal reflux disease without esophagi tis 03/18/2022 BPH with obstruction/lower urinary tract symptom s 03/18/2022 Dyslipidemia 03/18/2022 Acquired hypothyroidism 03/18/2022 Old [place] (myocardial infarction) 03/18/2022 Coronary artery disease invo lving [place] coronary artery of [place] heart without angina pectoris 03/18/2022 Obesity, Class I, BMI 30.0-34.9 (see actual BMI) 03/18/2022 documented as of this encounter (statuses as of 02/04/2024) Resolved Problems Problem Noted Date Diagnosed Date Resolved Date History of tobacco use 07/04/202309/29 documented as of this encounter (statuses as of 02/04/2024) Social History Tobacco Use Types Packs/Day Years [...] on file documented as of this encounter Plan of Treatment Upcoming Encounters Date Type Department Care Team (Late st Contact Info) Description 02/18/2024 9:30 AM EDT Imaging Radiology [facility] [address] [place] [address] 03/30/2024 4:00 PM EDT Office Visit Family Practice [facility] [address] [place] [address] Gonzalo Taylor MD [address] [place] [address] 07/08/2024 10:30 AM EST Office Visit Care at Home [address] [place] [address] Leslie Gonzales PA-C [address], [place] [id number] Health Maintenance Due Date Last Done Comments Depression Screening 1967 Hepatitis C Screening 1974 DTaP,Tdap,and Td Vaccines (1 - Tdap) 1975 Cologuard 2001 Fecal Occult Blood Test 2001 Sigmoidoscopy 2001 AAA Screening 2021 Pneumococcal Vaccine: 65+ Years (1 of 1 - PCV) 2021 COVID-19 Vaccine (2022- season) 2023 07/18/2022, 08/29/2021, 2021, Additional history exists HbA1c 09/30/2024 09/30/2023, 09/24/2022 TSH 09/30/2024 09/30/2023, 09/24/2022 Colonoscopy 03/24/2029 03/24/2019 Colorectal Cancer Screening 03/24/2029 Zoster Vaccines Completed 08/15/2020, 05/31/2020 Influenza Vaccine [...] Not on filedocumented as of this encounter Procedures Procedure Name Priority Date/Time Associated Diagnosis Comments COLONOSCOPY Routine 03/24/2019 documented in this encounter Results * COLONOSCOPY (03/24/2019) 03/24/2019 Jarad Dong Case DO GASTRO LOWER OUTSIDE LAB (SEE SCANNED REPORT) documented in this encounter Care Teams Guide Alpine Relationship Specialty Start Date End Date Gonzalo Taylor MD [address] [place] [address] PCP - General Family Medicine 03/21/22 documented as of this encounter
--- OUTSIDE RECORDS SUMMARY | 2024-06-08 11:49 | External Medical Summary | Summary of Care ---
Author Name Unknown Organization [facility] Address [address] [place] [address] Phone [phone] Care Team Providers Care Floor Covering Printer Assistant Name Role Phone Gonzalo Taylor MD Primary Care Provider [phone] Reason for Visit * Reason Onset Date Comments MyCode Consent 02/18/2024 Encounter Details Date Type Department Care Team (Late st Contact Info) Description 02/18/2024 Orders Only [facility] [address] [place] [address] Luna Restrepo CHRA MyCode Research Other*[id number]* Allergies No known active allergiesdocumented as of this encounter (statuses as of 02/18/2024) Medications Medication Sig Dispensed Refills Start Date [...] as of this encounter (statuses as of 02/18/2024) Active Problems Problem Noted Date Diagnosed Date Presence of bare metal stent in LAD coronary art marie 07/04/2023 Umbilical hernia without obstruction and without gangrene 07/04/2023 Prediabetes 09/24/2022 Psoriasis 03/21/2022 Gastroesophageal reflux disease without esophagi tis 03/18/2022 BPH with obstruction/lower urinary tract symptom s 03/18/2022 Dyslipidemia 03/18/2022 Acquired hypothyroidism 03/18/2022 Old [place] (myocardial infarction) 03/18/2022 Coronary artery disease invo lving [place] coronary artery of [place] heart without angina pectoris 03/18/2022 Obesity, Class I, BMI 30.0-34.9 (see actual BMI) 03/18/2022 documented as of this encounter (statuses as of 02/18/2024) Resolved Problems Problem Noted Date Diagnosed Date Resolved Date History of tobacco use 07/04/202309/29 documented as of this encounter (statuses as of 02/18/2024) Social History Tobacco Use Types Packs/Day Years [...] on file documented as of this encounter Progress Notes * Luna Restrepo CHRA - 02/18/2024 9:18 AM EDT MyCode Consent Documentation Krunal W Boris provided consent/authorization to participate in the [employer]Code Project. documented in this encounter Plan of Treatment Upcoming Encounters Date Type Department Care Team (Shereen st Contact Info) Description 03/30/2024 4:00 PM EDT Office Visit Family [facility] [address] [place] [address] Gonzalo Taylor MD [address] [place] [address] 07/08/2024 10:30 AM EST Office Visit Care at Home [address] [place] [address] Leslie Gonzales PA-C [address] [place], [place] [id number] Scheduled Orders Name Type Priority Associated Diagnoses Orde r Schedule MYCODE INITIAL ADULT Lab Routine MyCode Research Other*[id number] Expected: 02/18/2024 (Approximate), Expires: 03/09/2025 Health Maintenance Due Date Last Done Comments [...] as of this encounter Visit Diagnoses Diagnosis MyCode Research Other*[id number]- Primary documented in this encounter Care Teams Floor Covering Printer Assistant Relationship Specialty Start Date End Date Gonzalo Taylor MD [address] [place] [address] PCP - General Family Medicine 03/21/22 documented as of this encounter
--- OUTSIDE RECORDS SUMMARY | 2024-06-08 11:49 | External Medical Summary | Summary of Care ---
Author Name Unknown Organization [facility] Address [address] [place] [address] Phone [phone] Care Team Providers Care Pooling Operator Name Role Phone Gonzalo Taylor MD Primary Care Provider [phone] Reason for Visit * Reason Comments Re-Check 6 month check up Other Coughing, sneezing, post-nasal drip at night - intermittently Encounter Details Date Type Department Care Team (Late st Contact Info) Description 03/30/2024 4:00 PM EDT [facility] [address] [facility] [place] [address] Gonzalo Taylor MD [address] [facility] [place] [id number] Prediabetes*; Dyslipidemia; Acquired hypothyroidism; Presence of bare metal stent in LAD coronary artery; [place] (myocardial infarction); Coronary artery disease involving [place] coronary artery of [place] heart without angina pectoris; Gastroesophageal reflux disease without esophagitis; BPH with obstruction/lower urinary tract symptoms; Obesity, Class I, BMI 30.0-34.9 (see actual BMI) Allergies No known active allergiesdocumented as of this encounter (statuses as of 03/30/2024) Medications Medication Sig Dispensed Refills Start Date End Date Status Niacin ER, Antihyperlipidem ic, 1000 MG TBCR Take 1 Tablet by [...] the morning. 9.9 mL 2 03/30/2024 Active Benzonatate 100 MG Oral Capsule (Tessalon Perles) Take 1 Capsule by mouth 3 times a day as needed for Cough. Do not cut, crush, or chew. 50 Capsule 1 09/24/2022 4 Discontinued guaiFENesin-Code ine 100-10 MG/5ML Oral Syrup (Robitussin AC)Indications:A cute cough Take 5 mL by mouth every 4 hours as needed for Cough. 120 mL 10/22/2023 4 Discontinued documented as of this encounter (statuses as of 03/30/2024) Active Problems Problem Noted Date Diagnosed Date Presence of bare metal stent in LAD coronary art marie 07/04/2023 Umbilical hernia without obstruction and without gangrene 07/04/2023 Prediabetes 09/24/2022 Psoriasis 03/21/2022 Gastroesophageal reflux disease without esophagi tis 03/18/2022 BPH with obstruction/lower urinary tract symptom s 03/18/2022 Dyslipidemia 03/18/2022 Acquired hypothyroidism 03/18/2022 [place] (myocardial infarction) 03/18/2022 Coronary artery disease invo lving [place] coronary artery of [place] heart without angina pectoris 03/18/2022 Obesity, Class I, BMI 30.0-34.9 (see actual BMI) 03/18/2022 documented as of this encounter (statuses as of 03/30/2024) Resolved Problems Problem Noted Date Diagnosed Date Resolved Date History of tobacco use 07/04/202309/29 documented as of this encounter (statuses as of 03/30/2024) Social History Tobacco Use Types Packs/Day Years Used Date Smoking Tobacco: Former Cigarettes Q uit: 09/02/2011 Smokeless Tobacco: Never Tobacco Cessation:Counseling Given: Not Answered Alcohol Use Standard Drinks/Week Comments Yes 0 [...] Sign Reading Time Taken Comments Blood Pressure 118/74 03/30/2024 4:06 PM EDT Pulse 72 03/30/2024 4:06 PM EDT Temperature 36.4 C (97.6 F) 03/30/2024 4:06 PM ED T Respiratory Rate 16 03/30/2024 4:06 PM EDT Oxygen Saturation - - Inhaled Oxygen Concentration - - Weight 95.2 kg (209 lb 12.8 oz) 03/30/2024 4:06 PM EDT Height - - Body Mass Index 32.86 09/30/2023 10:14 AM EST documented in this encounter Progress Notes * Gonzalo Taylor MD - 03/30/2024 4:28 PM EDT SUBJECTIVE: Krunal Escalante is a 68 year old male. Chief Complaint Patient presents with Re-Check 6 month check up Other Coughing, sneezing, post-nasal drip at night - intermittently HPI: Routine 6 month check in. Feels great other than sneezing and post nasal drip at night. Follows with Dr. Ortega [facility] cardiology. Compliant with meds. No new cardiopulmonary symptoms. Health maintenanceitems are up to date. Patient Active Problem List Diagnosis Gastroesophageal reflux disease without esophagitis BPH with obstruction/lower urinary tract symptoms Dyslipidemia Acquired hypothyroidism [place] (myocardial infarction) Coronary artery disease involving [place] coronary artery of [place] heart without angina pectoris Obesity, Class I, [...] nostril in the morning. 9.9 mL 2 Niacin ER, Antihyperlipidemic, 1000 MG TBCR Take 1 Tablet by mouth. (Patient not taking: Reported on 03/30/2024) No current facility-administered medications for this visit. Allergy: Review of patient's allergies indicates: No Known Allergies OBJECTIVE: BP 118/74 (BP Site: Left Arm, BP Position: Sitting, BP Cuff Size: Large) | Pulse 72 | Temp 36.4 C(97.6 F) (Tympanic) | Resp 16 | Wt 95.2 kg (209 lb 12.8 oz) | BMI 32.86 kg/m | BSA 2.12 m General: alert, healthy, and no distress Head: Normocephalic, No masses, lesions, tenderness or abnormalities Neck: supple, no adenopathy, no bruits, thyroid normal size, non-tender, without nodularity Lungs: chest symmetric with normal AP diameter, no chest deformities noted, no chest wall tenderness, lungs clear to auscultation Heart: regular rate & rhythm, no murmur, and no gallops Extremities: less than 2 second capillary refill, no joint deformities, effusion, or inflammation Neuro Exam: alert & oriented x 3 with fluent speech, no focal motor/sensory deficits, gait normal, reflexes normal and symmetric Skin: skin color, texture, turgor are normal, no rashes or significant lesions ASSESSMENT AND PLAN: (R73.03) Prediabetes (primary encounter diagnosis) Plan: diet/exercise (E78.5) Dyslipidemia Plan: continue statin (E03.9) Acquired hypothyroidism Plan: euthyroid (Z95.5) Presence of bare metal stent in LAD coronary artery Plan: continue medical mgmt (I25.2) [place] (myocardial infarction) Plan: see above (I25.10) Coronary artery disease involving [place] coronary artery of [place] heart without angina pectoris Plan: see above (K21.9) Gastroesophageal reflux disease without esophagitis Plan: continue PPI (N40.1, N13.8) BPH with obstruction/lower urinary tract symptoms Plan: stable on flomax (E66.9) Obesity, Class I, BMI 30.0-34.9 (see actual BMI) Plan: diet/exercise Follow up in 6 month(s). No other complaints were offered at this time. Gonzalo Taylor MD documented in this encounter Nursing Notes * David Soria RN - 03/30/2024 4:08 PM EDT Chief Complaint Patient presents with Re-Check 6 month check up Other Coughing, sneezing, post-nasal drip at night - intermittently documented in this encounter Plan of Treatment Upcoming Encounters Date Type Department Care Team (Late st Contact Info) Description 07/08/2024 10:30 AM EST Office Visit Care at Home [address] [place] [address] Leslie Gonzales PA-C [address] [place] [address] 10/05/2024 10:20 AM EST Office Visit Family [facility] [address] [place] [address] Gonzalo Taylor MD [address] [place] [address] Health Maintenance Due Date Last Done Comments Depression Screening 1968 Hepatitis C Screening 1974 DTaP,Tdap,and Td Vaccines (1 - Tdap) 1975 Cologuard 2001 Fecal Occult Blood Test 2001 Sigmoidoscopy 2001 Pneumococcal Vaccine: 65+ Years (1 of 1 - PCV) 2021 COVID-19 Vaccine ( season) 2023 07/18/2022, 08/29/2021, 2021, Additional history exists Influenza Vaccine (FLU shot) (#1) 2024 08/07/2023, 07/18/2022, 07/18/2022, Additional history exists HbA1c 09/30/2024 09/30/2023, 09/24/2022 [...] as of this encounter Visit Diagnoses Diagnosis Prediabetes- Primary Other abnormal glucose Dyslipidemia Other and unspecified hyperlipidemia Acquired hypothyroidism Unspecified hypothyroidism Presence of bare metal stent in LAD coronary artery Postsurgical percutaneous transluminal coronary angioplasty status [place] (myocardial infarction) Old myocardial infarction Coronary artery disease involving [place] coronary artery of [place] heart without angina pectoris Gastroesophageal reflux disease without esophagitis Esophageal reflux BPH with obstruction/lower urinary tract symptoms Hypertrophy of prostate with urinary obstruction and other lower urinary tract symptoms (LUTS) Obesity, Class I, BMI 30.0-34.9 (see actual BMI) Obesity, unspecified documented in this encounter Care Teams Pooling Operator Relationship Specialty Start Date End Date Gonzalo Taylor MD [address] [facility] [place] [address] PCP - General Family Medicine 03/21/22 documented as of this encounter"
[2024-06-08 11:55] LABS: Troponin I High Sensitivity 8.3 pg/ml (0-20)
--- NOTE | 2024-06-08 12:23 | History & Physical Report ---
Date of Service June 08, 2024 Assessment & Plan (1) AV block: (2) Chest discomfort: Plan Krunal Escalante is a 68y/o M with PMHx significant for dyslipidemia, acquired hypothyroidism, prediabetes, HTN, history of MN s/p LAD stenting [2007], CAD, GERD, BPH with LUTS and psoriasis who presented to the ED on 06/08/2024 for evaluation of chest discomfort and SOB with exertion since last . 2:1 AV Block, Chest Tightness & SOB w/ Exertion: History as per HPI. Lab work rather unremarkable. CXR with cardiomegaly with mild pulmonary edema. 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 Initial troponin was 8.3, will continue to trend. Routine cardiology consult placed. Case was discussed with Dr. Noriega as the patient follows with [facility] Cardiology [Dr. Middleton] as outpatient. Plan to perform cardiac cath tomorrow. NPO at midnight. Pacer pads at bedside to be used PRN. Hold home metoprolol succinate for now. Sublingual nitroglycerin as needed. Lyme screen pending. Routine echocardiogram pending. EKG with chest pain as needed. Daily EKG x 2. Incidental CXR Finding: CXR noted a right midlung density, which has been noted on previous imaging. Will need an outpatient chest CT done. Hypothyroidism: TSH elevated at 7, free T4 WNL on admission. Continue levothyroxine. Recommend repeat thyroid labs in 4-6 weeks. Other Chronic Medical Conditions: Dyslipidemia, GERD, BPH, seasonal allergies --> Can continue home meds for these specific conditions. He is on Tremfya for plaque psoriasis. DVT Prophylaxis: SCDs/TEDs for now. Code Status: FULL CODE PCP: Gonzalo Taylor MD Disposition: Admit to PCU/Telemetry Patient seen in collaboration with Dr. Ramirez. Please see addendum. I spent a total of 60 minutes coordinating, documenting, and providing care for this patient excluding time spent in the performance of separately billed services. This included personally reviewing all current laboratories and imaging studies, medical reconciliation, outpatient chart review and discussion with specialists. This chart was completed in part utilizing Speech Voice Recognition Software. Grammatical errors, random word insertions, pronoun errors, and incomplete sentences are an occasional consequence of this system due to software limitations, ambient noise, and hardware issues. Any formal questions or concerns about the content, text, or information contained within the body of this dictation should be directly addressed to the provider for clarification. History of Present Illness Chief Complaint: Chest Discomfort Primary Care Provider: Gonzalo Taylor MD Krunal Escalante is a 68y/o M with PMHx significant for dyslipidemia, acquired hypothyroidism, prediabetes, HTN, history of MN s/p LAD stenting [2008], CAD, GERD, BPH with LUTS and psoriasis who presented to the ED on 06/08/2024 for evaluation of chest discomfort and SOB with exertion. History obtained from patient and associated chart review. Patient with episodes of chest tightness and SOB with exertion since last . Reports this typically occurs when he first starts to exert himself and typically subsides as he continues to move. However this does not occur every time he moves. Denies that this ever occurs at rest. He was shopping in the grocery store this morning when he had 2 separate episodes of this chest tightness with associated shortness of breath. These episodes only lasted approximately 10 to 15 seconds when he had some lightheadedness during these episodes as well. Patient reports that he typically does have lightheadedness during these events, however he denies any recent falls or syncopal events. He denies ever having any episodes like this before. He is a former smoker but stopped in 2011. Reports rare alcohol use. No recent medication changes. Denies any fevers, sinus congestion, cough or urinary/bowel habit changes. He has been following with Dr. Middleton since the . Patient with a on 2:1 AV block on the monitor with exertion in the ED. No history of pacemaker placement. Allergies Allergy/AdvReac Type Severity Reaction Status Date / Time No Known Allergies Allergy Mild Verified 06/08/24 12:42 Home Medications Medication Instructions Recorded Confirmed Type aspirin 81 mg tablet,delayed 81 mg PO HS 03/17/19 06/08/24 History release guselkumab 100 mg/mL subcutaneous 100 mg subcut .COMPLEX 04/22/19 06/08/24 History syringe nitroglycerin 0.4 mg sublingual 0.4 mg sublingual Q5M PRN chest 07/14/20 06/08/24 Rx tablet pain #30 tabs pantoprazole 40 mg tablet,delayed 40 mg PO BID #180 tabs 05/29/21 06/08/24 Rx release rosuvastatin 40 mg tablet (Crestor) 40 mg PO QPM #90 tabs 10/09/23 06/08/24 Rx metoprolol succinate 25 mg 12.5 mg (1/2 x 25 mg) PO DAILY #45 10/31/23 06/08/24 Rx tablet,extended release 24 hr tabs tamsulosin 0.4 mg capsule 0.4 mg PO QAM 01/14/24 06/08/24 History fluticasone propionate 50 2 spray intranasal QAM 06/08/24 06/08/24 History mcg/actuation nasal spray,suspension levothyroxine 125 mcg tablet 125 mcg PO QAM 06/08/24 06/08/24 History Past Med/Surg History Problem List Chest pain on exertion (Acute) Heart block AV second degree (Acute) AV block Chest discomfort Prostate cancer screening encounter, options and risks discussed Encounter for health maintenance examination History of anterior wall myocardial infarction Elevated fasting glucose Presence of bare metal stent in LAD coronary artery Coronary artery disease Antiplatelet or antithrombotic long-term use Hypertension (Chronic) GERD (gastroesophageal reflux disease) (Chronic) Hypothyroidism (Chronic) Dyslipidemia (Chronic) Cervical neck pain with evidence of disc disease (Acute) Cervical spine degeneration (Acute) Medical History Psoriasis Degenerative disc disease BPH (benign prostatic hyperplasia) GERD (gastroesophageal reflux disease) Hypothyroidism Myocardial Infarction 2007 Hypertension Hyperlipidemia Myocardial infarction Surgical History History of colonoscopy (03/24/19) Dr. Hassan, normal, recheck 10 years History of tooth extraction History of heart artery stent 2007>[address] [facility] Family History Mother Family history of diabetes mellitus Ovarian cancer Aunt Cancer Leukemia Father Myocardial infarction Other Lung disease Denies family history of Prostate cancer Breast cancer Colorectal cancer Social History Smoking Status: Former smoker Tobacco Type: Cigarettes Cigarettes Per Day: 2.5; Second Hand Exposure: No; Do You Dip or Chew Tobacco: No; Tobacco Cessation Education Requested by Patient: No Hx Alcohol Use: Yes Alcohol type: beer Hx Substance Use: No Preferred Language: Faroese Communication Ability: Effective Major Assembly Lineman Required: No Beliefs That Will Affect Care: None Current Living Situation: Spouse current occupational status: employed 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 Physical Exam Physical Exam: General: WD/WN, vitals as above, NAD, sitting up in bed, pleasant, conversing appropriately. A+Ox3, euthymic affect. HEENT: Normocephalic, atraumatic. PERRL, conjunctivae normal, anicteric sclerae. External ear and nose normal, oropharynx normal. Respiratory: Normal respiratory effort, lungs clear to auscultation, no wheeze, rales, rhonchi. No accessory muscle use. Cardiovascular: Regular rate, rhythm, no murmur, normal peripheral pulses, no BLE edema. Vessels: No JVD. Abdomen/GI: Normal bowel sounds, soft, nontender, no hepatosplenomegaly. Extremities/Musculoskeletal: No cyanosis or clubbing, extremities motor strength intact, moves all extremities. Neurologic: EOMI, no focal deficits, CN's II-XI not formally tested but appear grossly intact bilaterally. Skin: No rashes, normal color, warm/dry. Results & Data Results & Data Vital Signs (Past 12 Hours) Vital Signs Temp Pulse Pulse Resp BP BP Pulse Ox 06/08/24 12:20 59 L 20 97 06/08/24 11:20 57 L 16 150/93 H 97 06/08/24 10:09 38 L 06/08/24 09:50 68 06/08/24 09:50 65 18 150/93 H 97 06/08/24 09:50 06/08/24 09:26 36.5 C 64 14 132/78 97 O2 Del Method 06/08/24 12:20 Room Air 06/08/24 11:20 Room Air 06/08/24 10:09 06/08/24 09:50 06/08/24 09:50 Room Air 06/08/24 09:50 Room Air 06/08/24 09:26 Room Air Laboratory Results Short CBC 06/08/24 Range/Units Unknown WBC 7.72 (4.8-10.8) K/ul Hgb 14.3 (14.0-18.0) g/dl Hct 43.9 (42.0-52.0) % Plt Count 252 (130-400) K/uL BMP 06/08/24 Unknown Sodium 139 Potassium 4.4 Chloride 106 Carbon Dioxide 27 BUN 15 Creatinine 0.90 Glucose 104 H Calcium 9.7 Liver Function 06/08/24 Range/Units Unknown Total Bilirubin 0.9 (0.2-1.0) mg/dl Direct Bilirubin 0.1 (0-0.2) mg/dl AST 28 (13-39) U/L ALT 25 (7-52) U/L Alkaline Phosphatase 147 H (34-104) U/L Albumin 4.1 (3.4-5.0) gm/dl Diagnostic Findings Chest X-Ray 06/08/24 09:56 XR chest 1V portable CLINICAL HISTORY: Chest Pain TECHNIQUE: Single frontal radiograph of the chest was obtained. Comparison: Comparison is made to chest radiograph 09/19/2023 FINDINGS: No lines and tubes are seen. Cardiomegaly is noted. Prominence and cephalization of the vasculature is seen. Previously noted right midlung density is similar in appearance. No evidence of pleural effusion or pneumothorax. IMPRESSION: 1. Cardiomegaly and mild pulmonary edema. 2. Right midlung density is again seen. If there is clinical suspicion for nodule, CT chest performed on a nonemergent basis. ACT 112: Negative or not required by law. Electronically signed by: Manolo Castro M.D. 06/08/2024 10:21 AM Code Status & VTE Plan Code Status FULL CODE VTE Prophylaxis Plan VTE Prophylaxis will be ordered: Yes Supervising Physician Co-Signing Physician Notes Attending Addendum: Case reviewed with the advanced practitioner. I have personally performed a history and physical examination on the patient. I have reviewed the advanced practitioner's documentation on the date of service referenced in note, and I agree with, and take responsibility for the plan of care. please refer to her notes for full details patient seen and examined, records reviewed by myself as well on exam, patient seen resting in bed, comfortable feels fine while at rest as per patient reports dyspnea, chest tightness with exertion 2:1 AV Block, HR 50s noted while ambulating in the ER room no other symptoms VS noted and reviewed oriented x 3, not in distress, speaks in sentences with no effort nor accessory muscle use normal rate, regular rhythm, no murmurs clear breath sounds bilaterally non distended, soft, nontender no bipedal edema, erythema, warmth no neuro deficits all labs, imaging noted and reviewed ASSESSMENT AND PLAN> CHEST TIGHTNESS, DYSPNEA WITH EXERTION HISTORY OF CAD, STENT TO LAD IN 2007 2:1 AV Block, HR 50s noted while ambulating in the ER room trop negative, EKG no signs of acute ischemia, infarct discussed with Drainage Design Coordinator Dr. Noriega plan for cardiac cath tomorrow, referral to EP continue ASA hold Metoprolol other diagnoses and plan of care as per advanced practitioner's notes Chuckie Ramirez MD
[2024-06-08 13:22] LABS: Thyroid Stimulating Hormone 7.051 uIu/ml (0.300-4.500)
[2024-06-08 13:24] LABS: T4 Free Thyroxine 1.29 ng/dl (0.61-1.60)
[2024-06-08] MEDS ORDERED: ONDANSETRON INJ 2 MG/ML 2 ML VIAL IV PRN (15:54)
[2024-06-08] MEDS ORDERED: POLYETHYLENE (MIRALAX) 17 GM PACK PO PRN (15:54)
[2024-06-08] MEDS ORDERED: NITROGLYCERIN SL 0.4 MG/TAB TAB SL PRN (15:54)
--- NOTE | 2024-06-08 16:06 | XCELERA ---
[id number]
--- NOTE | 2024-06-08 16:24 | Electrocardiogram Report ---
Test Reason : Blood Pressure : */* mmHG Vent. Rate : 63 BPM Atrial Rate : 63 BPM P-R Int : 186 ms QRS Dur : 144 ms QT Int : 432 ms P-R-T Axes : 64 79 18 degrees QTcB Int : 442 ms Normal sinus rhythm Right bundle branch block Anterior infarct (cited on or before 28-Mar-2023) Abnormal ECG When compared with ECG of 28-Mar-2023 20:27, Vent. rate has decreased by 35 bpm Minimal criteria for Inferior infarct are no longer Present Confirmed by Wyatt Meadows ([id number]) on 06/08/2024 4:23:58 PM Referred By: REFERRED SELF Confirmed By: Wyatt Meadows
--- NOTE | 2024-06-08 16:27 | Electrocardiogram Report ---
Test Reason : Blood Pressure : */* mmHG Vent. Rate : 63 BPM Atrial Rate : 63 BPM P-R Int : 180 ms QRS Dur : 144 ms QT Int : 422 ms P-R-T Axes : 51 74 12 degrees QTcB Int : 431 ms Normal sinus rhythm Right bundle branch block Anterior infarct (cited on or before 28-Mar-2023) Abnormal ECG When compared with ECG of 08-Jun-2024 09:46, (unconfirmed) No significant change was found Confirmed by Wyatt Meadows ([id number]) on 06/08/2024 4:26:57 PM Referred By: REFERRED SELF Confirmed By: Wyatt Meadows
--- NOTE | 2024-06-08 18:03 | Cardiology Consultation ---
Date of Consultation June 08, 2024 Assessment & Plan (1) Heart block AV second degree: 2. Cardiomyopathy -- LVEF 35-40% anteroseptal/septal severe hypokinesis 3. Hypertension 4. Dyslipidemia Patient with new 2nd degree 2:1 AV block with heart rates in the 30s. Asymptomatic with these episodes at rest, presyncope with standing and question related to recent exertional dyspnea/chest discomfort. Longstanding right bundle branch block and suspect this may be further deterioration of his conduction disease. Recurrent obstructive CAD with his history and new worsening LV dysfunction also considered. Initial Lyme screen negative. Currently patient is asymptomatic while in bed and hemodynamically stable. No indication for acute temporary pacer. Recommendations: Overnight continue to trend troponins, monitor on telemetry with pacer pads in place Plan on cardiac catheterization in a.m. Keep n.p.o. past midnight Continue to hold beta-junaid If no reversible CAD to explain symptoms we will discuss with EP for possible pacemaker/defibrillator. With his cardiomyopathy has indication for beta- junaid long-term. Continue home aspirin, statin History of Present Illness Attending Physician: Chuckie Ramirez MD History of Present Illness Mr. Escalante is a very pleasant 68-year-old male with a history of coronary disease post remote anterior IA seen today in the setting of exertional chest discomfort and presyncope with name 2-1 AV block. Primary academic affairs manager is Dr. Middleton. Patient had anterior IA and 01/2008 treated with single BMS to earlymid LAD. Has done well since that time. Last stress test 10/2017 negative for ischemia, resting EF 45-50% with basal to mid septal akinesis. Had MCOT 04/2018 which showed sinus rhythm and PVCs. Recently has been feeling well. 4 days ago mowed with a push mower for 4 hours without symptoms. Has noted change person the last 3 days with new exertional chest discomfort dyspnea if walks upstairs. Today has noted more presyncope/shortness of breath when goes from sitting to standing. In the ED hemodynamically stable. ECG showed sinus rhythm with old right bundle branch block. HS TropI negative x 2. Had repeated episodes of 2-1 AV block on telemetry with heart rates down to 30s most notably when he would stand up but since admitted has also now had them at rest. Denies similar symptoms in the [facility]. No recent changes to his medications. Has been taking beta-junaid. No fevers, chills, rashes or known tick exposure. Past medical history: Hypertension, dyslipidemia, hypothyroidism, GERD, BPH, psoriasis Family history: Father had pacemaker in his 70s to 80s. Social history: Former smoker. 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 , 3 daughters Allergies Allergy/AdvReac Type Severity Reaction Status Date / Time No Known Allergies Allergy Mild Verified 06/08/24 12:42 Home Medications Medication Instructions Recorded Confirmed Type aspirin 81 mg tablet,delayed 81 mg PO HS 03/17/19 06/08/24 History release guselkumab 100 mg/mL subcutaneous 100 mg subcut .COMPLEX 04/22/19 06/08/24 History syringe nitroglycerin 0.4 mg sublingual 0.4 mg sublingual Q5M PRN chest 07/14/20 06/08/24 Rx tablet pain #30 tabs pantoprazole 40 mg tablet,delayed 40 mg PO BID #180 tabs 05/29/21 06/08/24 Rx release rosuvastatin 40 mg tablet (Crestor) 40 mg PO QPM #90 tabs 10/09/23 06/08/24 Rx metoprolol succinate 25 mg 12.5 mg (1/2 x 25 mg) PO DAILY #45 10/31/23 06/08/24 Rx tablet,extended release 24 hr tabs tamsulosin 0.4 mg capsule 0.4 mg PO QAM 01/14/24 06/08/24 History fluticasone propionate 50 2 spray intranasal QAM 06/08/24 06/08/24 History mcg/actuation nasal spray,suspension levothyroxine 125 mcg tablet 125 mcg PO QAM 06/08/24 06/08/24 History Patient History Medical History Psoriasis Degenerative disc disease BPH (benign prostatic hyperplasia) GERD (gastroesophageal reflux disease) Hypothyroidism Myocardial Infarction 2007 Hypertension Hyperlipidemia Myocardial infarction Surgical History History of colonoscopy (03/24/19) Dr. Hassan, normal, recheck 10 years History of tooth extraction History of heart artery stent 2007>[address] MIDDLETON AT [facility] Family History Mother Family history of diabetes mellitus Ovarian cancer Aunt Cancer Leukemia Father Myocardial infarction Other Lung disease Denies family history of Prostate cancer Breast cancer Colorectal cancer Social History Smoking Status: Former smoker Tobacco Type: Cigarettes Cigarettes Per Day: 2.5; Second Hand Exposure: No; Do You Dip or Chew Tobacco: No; Tobacco Cessation Education Requested by Patient: No Hx Alcohol Use: Yes Alcohol type: beer Hx Substance Use: No Preferred Language: Macedonian Communication Ability: Effective Communications Controller Required: No Beliefs That Will Affect Care: None Current Living Situation: Spouse current occupational status: employed 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 [employer] Other Information That Helps Us Care for You: No Feels Safe at Home: Yes Safety Concerns: Feels Safe At This Time Childhood Exposure to Second-Hand Smoke: Yes Diet: regular caffeine: Yes Dental Care, Regularly: Yes Physical Activity Frequency: 5-6 Times per Week Seatbelt Use: never Sunscreen Use: No Assistive Devices: Denture - Upper, Denture - Lower and Glasses Review of Systems Review of Systems: All systems reviewed & are unremarkable except as noted in HPI & below Physical Exam Physical Exam: General: Comfortable HEENT: Sclerae anicteric Lungs: Clear to auscultation bilaterally Cardiac: Regular rate and rhythm, no murmurs. Vascular: 2+ radial Abdomen: Soft, nontender Extremities: Well perfused, no peripheral edema Neuro: Nonfocal Psych: Alert orient x3, normal affect and mood Results & Data Vital Signs (Past 12 Hours) Vital Signs Temp Pulse Pulse Resp BP BP Pulse Ox 06/08/24 17:21 67 06/08/24 16:10 06/08/24 16:10 97.9 F 62 18 144/79 H 99 06/08/24 15:54 97.9 F 62 18 144/79 H 99 06/08/24 13:50 66 20 116/59 L 96 06/08/24 12:20 59 L 20 97 06/08/24 11:20 57 L 16 150/93 H 97 06/08/24 10:09 38 L 06/08/24 09:50 68 06/08/24 09:50 65 18 150/93 H 97 06/08/24 09:50 06/08/24 09:26 97.7 F 64 14 132/78 97 O2 Del Method 06/08/24 17:21 06/08/24 16:10 Room Air 06/08/24 16:10 Room Air 06/08/24 15:54 Room Air 06/08/24 13:50 Room Air 06/08/24 12:20 Room Air 06/08/24 11:20 Room Air 06/08/24 10:09 06/08/24 09:50 06/08/24 09:50 Room Air 06/08/24 09:50 Room Air 06/08/24 09:26 Room Air PG Care Time/CCT Total # of Minutes Spent Total Time Spent with Patient: Total time spent is greater than 50% in coordination of care (as documented) at patient's floor/unit and/or counseling patient: Coding Level of Care Code 49105 INT INP/OBS CARE 2/55MIN Diagnoses Heart block AV second degree I44.1
[2024-06-08] MEDS: ROSUVASTATIN CALCIUM 20 MG TAB PO SCH (20:03)
[2024-06-08] MEDS: ASPIRIN 81 MG ECTAB PO SCH (20:03)
[2024-06-08] MEDS: PANTOprazole 40 MG TAB PO SCH (20:03)
[2024-06-09] MEDS: LEVOTHYROXINE SODIUM 125 MCG TABLET PO SCH (06:07)
[2024-06-09 06:45] LABS: Hematocrit (blood only) 41.8 % (42.0-52.0); Hemoglobin 14.4 g/dl (14.0-18.0); Mean Corpuscular Hemoglobin 30.4 pg (25.0-34.0); Mean Corpuscular Hgb Conc 34.4 g/dL (32.0-36.0); Mean Corpuscular Volume 88.4 fL (80.0-100.0); Mean Platelet Volume 10.6 fL (9.4-12.4); Platelet Count 252 K/uL (130-400); RDW Coefficient of Variation 13.2 % (11.5-14.5); RDW Standard Deviation 43.1 fL (36.4-46.3); Red Blood Count 4.73 M/uL (4.70-6.10); White Blood Count 10.33 K/ul (4.8-10.8)
[2024-06-09 06:59] LABS: Albumin Globulin Ratio 1.3 (0.9-2); Albumin Level 3.7 gm/dl (3.4-5.0); BUN Creatinine Ratio 17.5 (10-20); Calcium 9.3 mg/dl (8.6-10.3); Globulin 2.9 gm/dl (2.5-4.0); Magnesium 1.9 mg/dl (1.7-2.4); Phosphorus 3.7 mg/dl (2.5-4.9); Potassium 4.1 mmol/L (3.5-5.1); Total Protein 6.6 gm/dl (6.0-8.3)
[2024-06-09 07:05] LABS: Troponin I High Sensitivity 9.7 pg/ml (0-20)
--- NOTE | 2024-06-09 08:50 | Electrocardiogram Report ---
Test Reason : Blood Pressure : */* mmHG Vent. Rate : 57 BPM Atrial Rate : 57 BPM P-R Int : 174 ms QRS Dur : 142 ms QT Int : 474 ms P-R-T Axes : 29 75 19 degrees QTcB Int : 461 ms Sinus bradycardia Right bundle branch block Abnormal ECG When compared with ECG of 08-Jun-2024 12:29, Criteria for Anterior infarct are no longer Present T wave inversion no longer evident in Anterior leads Confirmed by Doron Elizalde ([id number]) on 06/09/2024 8:50:12 AM Referred By: REFERRED SELF Confirmed By: Doron Elizalde
--- NOTE | 2024-06-09 08:55 | Pre Anesthesia Assessment ---
Date of Service June 09, 2024 Pre Sedation Assessment Vital Signs Temp Pulse Pulse Resp BP BP BP 06/09/24 08:18 64 14 132/74 132/74 06/09/24 07:25 97.9 F 62 19 109/58 L 06/09/24 03:07 97.9 F 61 18 117/74 06/08/24 23:35 97.9 F 56 L 16 126/75 06/08/24 22:00 36 L 06/08/24 19:59 98.1 F 61 16 126/80 06/08/24 17:21 67 06/08/24 16:10 06/08/24 16:10 97.9 F 62 18 144/79 H 06/08/24 15:54 97.9 F 62 18 144/79 H 06/08/24 13:50 66 20 116/59 L 06/08/24 12:20 59 L 20 06/08/24 11:20 57 L 16 150/93 H 06/08/24 10:09 38 L 06/08/24 09:50 68 06/08/24 09:50 65 18 150/93 H 06/08/24 09:50 06/08/24 09:26 97.7 F 64 14 132/78 Pulse Ox O2 Del Method 06/09/24 08:18 97 Room Air 06/09/24 07:25 96 Room Air 06/09/24 03:07 93 Room Air 06/08/24 23:35 96 Room Air 06/08/24 22:00 06/08/24 19:59 96 Room Air 06/08/24 17:21 06/08/24 16:10 Room Air 06/08/24 16:10 99 Room Air 06/08/24 15:54 99 Room Air 06/08/24 13:50 96 Room Air 06/08/24 12:20 97 Room Air 06/08/24 11:20 97 Room Air 06/08/24 10:09 06/08/24 09:50 06/08/24 09:50 97 Room Air 06/08/24 09:50 Room Air 06/08/24 09:26 97 Room Air Cardiovascular + regular rate Respiratory + respiratory effort normal Pre-Sedation Airway Assessment Smoking Status: Former smoker Hx Sleep Apnea: No Hx Difficult Intubation: No Short, Thick Neck: No Thyromental Distance: > or= 3.5 Finger Breadths Oral Cavity: + Dentures Mallampati Class: III ASA: ASA3 NPO Status Date of Last Intake of Fluids: 06/08/24 Time of Last Intake of Fluids: 20:00 Procedure Planning Contraindications for Sedation: none Current Medications Reviewed: Yes Notes The planned sedation has been discussed with the patient. Informed Consent was obtained. I have identified the patient, determined the appropriateness of sedation and have assessed the patient immediately prior to the procedure. All medicine(s) and interventions are by my order.
[2024-06-09] MEDS: HEPARIN (PORCINE) 1000 UNIT/ML 10 ML (CATH LAB USE ONLY) ONE (10:11)
[2024-06-09] MEDS: fentaNYL citrate PF 100 MCG/2 ML VIAL ONE (10:11)
[2024-06-09] MEDS: MIDAZOLAM HCL 1 MG/ML 2ML VIAL ONE (10:12)
[2024-06-09] MEDS: niCARdipine HCL INJ 2.5 MG/ML 10 ML AMP ONE (10:12)
[2024-06-09] MEDS: OPTIRAY 350 ONE (10:13)
[2024-06-09] MEDS: NITROGLYCERIN/D5W 100MCG/ML 20ML SYR ONE (10:15)
[2024-06-09] MEDS: CLOPIDOGREL BISULFATE 300 MG TAB ONE (10:16)
[2024-06-09] MEDS: ASPIRIN 81 MG CHEW ONE (10:16)
--- NOTE | 2024-06-09 10:21 | Post Anesthesia Assessment ---
Date of Service June 09, 2024 Post Sedation Assessment Vital Signs Temp Pulse Pulse Resp BP BP BP 06/09/24 08:18 64 14 132/74 132/74 06/09/24 07:25 97.9 F 62 19 109/58 L 06/09/24 03:07 97.9 F 61 18 117/74 06/08/24 23:35 97.9 F 56 L 16 126/75 06/08/24 22:00 36 L 06/08/24 19:59 98.1 F 61 16 126/80 06/08/24 17:21 67 06/08/24 16:10 06/08/24 16:10 97.9 F 62 18 144/79 H 06/08/24 15:54 97.9 F 62 18 144/79 H 06/08/24 13:50 66 20 116/59 L 06/08/24 12:20 59 L 20 06/08/24 11:20 57 L 16 150/93 H Pulse Ox O2 Del Method 06/09/24 08:18 97 Room Air 06/09/24 07:25 96 Room Air 06/09/24 03:07 93 Room Air 06/08/24 23:35 96 Room Air 06/08/24 22:00 06/08/24 19:59 96 Room Air 06/08/24 17:21 06/08/24 16:10 Room Air 06/08/24 16:10 99 Room Air 06/08/24 15:54 99 Room Air 06/08/24 13:50 96 Room Air 06/08/24 12:20 97 Room Air 06/08/24 11:20 97 Room Air Recovery Score Activity: Moves 4 extremities Respiration: Deep Breath/Cough Circulation: +/-20% PreAnes Value Consciousness: Fully Awake Oxygen Saturation: O2 needed for >90% Discharge Sedation Level of Care: Fast Track Phase II Post Sedation Plan On clinical assessment, the patient appears to have tolerated the sedation without complications. Patient is recovering as anticipated. Patient will continue to be monitored by nursing and may be discharged when sedation discharge criteria are met per below protocol. Upon Completions of procedure up to 15 minutes continue every 5 minute vital signs and the P.A.R. score; then discharge to a Phase I or Fast Track to Phase II per the following guidelines: * Discharge Patient to appropriate Phase II area if PAR is 8 or greater or return to pre- procedure baseline. The post - procedure orders will be as directed. * If PAR score is less than 8 or not return to pre-procedure baseline then patient will follow Phase I monitoring till PAR is reached for Phase II. The Phase I may be done in procedure room or may call to secure a Phase I area. * If naloxone or flumazenil are used for reversal, hold in Phase I for continued monitoring from when last reversal dose was given for a minimum of 60 minutes or longer pending the nurse and/or physician discretion of patient condition before discharge to Phase II. Please call the Sedation Physician to re-evaluate and complete post-note for discharge to Phase II area. Do NOT discharge from procedure sedation or Phase 1 until post- sedation evaluation note is complete by procedure /sedation MD Sedation Discharge Instructions to be given to the patient at discharge to home.
--- NOTE | 2024-06-09 10:40 | Cardiac Catheterization ---
[employer] Data: [employer] Cardiac Status Clinical evaluation leading to the procedure CAD Presenation: Unstable angina Anginal Classification: CCS III Diagnostic Physicians Name: Jabier Noriega MD Closure Device Recommendations: PCI without planned CABG Cardiac Cath Procedure Full Procedure Date June 09, 2024 Pre-Procedure Diagnosis Pre-Procedure Diagnosis: Angina, Cardiomyopathy and Arrhythmia AUC Score AUC Score: 7 Post-Procedure Diagnosis Post-Procedure Diagnosis: Severe CAD and Successful PCI Procedure(s) Performed Procedure(s) Performed: Coronary Angiography, Left Heart Cath, IVUS and Procedure (Intravascular lithotripsy) It Web Development Consultant Jabier Noriega MD Director Volunteer Services(s) [place] Estimated Blood Loss Estimated Blood Loss: 15 Medication(s) Medication(s): Clopidogrel, Fentanyl, Heparin, Lidocaine 1%, Nicardipine, Nitroglycerin and Versed Summary of Findings Indication: LV dysfunction, exertional angina, new 2-1 AV block. History of CAD with prior anterior [place] and BMS (4.0 x 18) to mid LAD. Access: 6 Fr slender right radial artery Catheters: [place], EBU 3.5 guide Findings: LM -normal caliber, no significant disease LAD -large caliber, 30% proximal stenosis before takeoff of D1. Earlymid LAD stent with diffuse in-stent restenosis up to 80 to 90%. Remainder of vessel without significant disease. SANDRA II-III flow in distal vessel as wraps around apex. Large D1 with 40% proximal stenosis. Ramusmedium caliber, 40% ostial. Circumflex -large caliber, dominant, distal luminal irregularities. Medium OM2 40% proximal. Small L PDA without significant disease. RCA -small, nondominant, no significant disease LVEDP -13 -- PCI -- Antithrombotic therapy: Heparin, clopidogrel Procedure: Left main cannulated with EBU 3.5 guide Pre-procedure flow SANDRA 23 [place] blue wire passed across lesion into distal vessel Mid LAD lesion predilated with 2.5 compliant balloon Navarro IVUS catheter placed to mid LAD. Pullback revealed severe in-stent restenosis involving majority of stent, calcified extending just proximal to stent. Mild to moderate proximal eccentric just before takeoff of D1. No significant ostial LAD or left main disease. In-stent disease further dilated with 4.0 NC. Proximal in-stent restenosis failed to fully expand. In-stent restenosis further treated with 4.0 shockwave intravascular lithotripsy (60 pulses) with full expansion of in-stent disease. New ARNALDO (3.5 x 22 mm Harley) placed overlapping prior stent and extending proximally to just after takeoff of D1. Stent post-dilated with 4.0 noncompliant balloon IC vasodilators administered for spasm Post procedure SANDRA 3 flow, stent well expanded with minimal residual stenosis and no apparent cardiac complications. Arterial Closure: TR band Summary: 1. Severe single vessel coronary artery disease -80-90% diffuse mid LAD in-stent restenosis 40% proximal D1, 40% ostial ramus, 40% proximal OM 2 2. Normal intracardiac filling pressure 3. Successful PCI of mid LAD in-stent restenosis with intravascular lithotripsy and new overlapping ARNALDO (3.5 x 22 mm Harley; postdilated with 4.0 NC). Recommendations: To PCU for continued monitoring Loaded with clopidogrel 600 mg in [employer] Continue dual-antiplatelet therapy for at least 1 year, likely extended P2Y12 in the setting of overlapping stents Continue statin, and ASCVD risk factor modification Consult cardiac Rehab Hemodynamics Rest Ao:: 88/65/76 Final Ao: 119/72/94 LV: 87/13 Recommendations Recommendations: PCI without planned CABG Specimens Specimens: None Radiation Exposure (mGy) 2315 Contrast (mls) 85 Anesthesia Moderate 9820-9088 Procedural Complication(s) None Disposition PCU I attest to the content of the Intraoperative Record and any orders documented therein. Any exceptions are noted below. [facility] Card Cath Procedure Codes Cardiac Catheterization Procedure 1: Cardiovascular Cath Procedures: 30983 Coronaries and LHC (+/-LV) Therapeutic Services & Ancillary Procedure 1: Cardiovascular Tx and Anc Procedures: 43366 IV Ultrasound (Coronary or Graft) Moderate Sedation Procedure 1: Sedation/Anesthesia: 84991 Mod Sedation by the same physician;Init15 Min Child Age 5 & Up Procedure 2: Sedation/Anesthesia: 71043 Mod Sedation by the same physician; Ea [id number] Minutes Stenting Procedure 1: Cardiovascular Stent Procedures: 00683 Perc transcatheter placement of intracoronary stent(s), with ang PG Care Time/CCT Total # of Minutes Spent Total Time Spent with Patient: Total time spent is greater than 50% in coordination of care (as documented) at patient's floor/unit and/or counseling patient:
--- NOTE | 2024-06-09 10:50 | Cardiology Progress Note ---
Date of Service June 09, 2024 Assessment & Plan (1) Heart block AV second degree: Plan: 2. Cardiomyopathy -- LVEF 35-40% anteroseptal/septal severe hypokinesis 3. CAD post anterior [place] and prior BMS to LAD 2007 4. Hypertension 5. Dyslipidemia Patient underwent cardiac catheterization this morning which revealed severe LAD in-stent restenosis. Underwent successful PCI with new ARNALDO overlapping prior BMS. Hopeful LAD intervention will improve angina and LV dysfunction. Unsure if LAD disease was contributing at all to conduction abnormalities. Continue to monitor off beta-junaid on telemetry at least tonight. If continued episodes of AV block may still need pacemaker/ICD. Continue DAPT with aspirin, clopidogrel Continue current statin Plan to start low-dose ARB as BP allows Will follow Admission and Anticipated Discharge Date Admission Date: June 08, 2024 Subjective Feeling well. Up to the bathroom several times overnight but no chest symptoms, presyncope. Telemetry reviewedintermittent 2-1 AV block with heart rates in the 30s Review of Systems Review of Systems: All systems reviewed & are unremarkable except as noted in HPI & below Physical Exam Physical Exam: General: Comfortable HEENT: Sclerae anicteric Lungs: Clear to auscultation bilaterally Cardiac: Regular rate and rhythm, no murmurs. Vascular: TR band in place Abdomen: Soft, nontender Extremities: Well perfused, no peripheral edema Neuro: Nonfocal Psych: Alert orient x3, normal affect and mood Results & Data Vital Signs (Past 12 Hours) Vital Signs Temp Pulse Resp BP BP Pulse Ox O2 Del Method 06/09/24 10:28 60 18 132/78 95 Room Air 06/09/24 10:15 60 18 137/80 97 Room Air 06/09/24 08:18 64 14 132/74 132/74 97 Room Air 06/09/24 07:25 97.9 F 62 19 109/58 L 96 Room Air 06/09/24 03:07 97.9 F 61 18 117/74 93 Room Air 06/08/24 23:35 97.9 F 56 L 16 126/75 96 Room Air PG Care Time/CCT Total # of Minutes Spent Total Time Spent with Patient: Total time spent is greater than 50% in coordination of care (as documented) at patient's floor/unit and/or counseling patient: Coding Level of Care Code 64842 SUB INP/OBS CARE 3/50MIN Diagnoses Heart block AV second degree I44.1
[2024-06-09] MEDS: TAMSULOSIN HCL 0.4 MG CAP PO SCH (10:54)
[2024-06-09] MEDS: FLUTICASONE PROPIONATE NA SPR 16 GM BTL SCH (10:54)
[2024-06-09] MEDS: TICAGRELOR 90 MG TAB ONE (10:58)
[2024-06-09] MEDS: DOPamine 400MG / 250ML D5W (Cath Lab Use ONLY) IV ONE (10:58)
[2024-06-09] MEDS: SODIUM CHLORIDE 0.9% 1,000 ML IV SCH (12:03)
--- NOTE | 2024-06-09 12:28 | Hospitalist Progress Note ---
Date of Service June 09, 2024 Assessment & Plan (1) AV block: (2) Chest discomfort: Plan Krunal Escalante is a 68y/o M with PMHx significant for dyslipidemia, acquired hypothyroidism, prediabetes, HTN, history of [place] s/p LAD stenting [2007], CAD, GERD, BPH with LUTS and psoriasis who presented to the ED on 06/08/2024 for evaluation of chest discomfort and SOB with exertion since last . Severe LAD in-stent restenosis--POA S/P cardiac catheterization with successful PCI--new drug-eluting stent overlapping prior BMS Second-degree heart block H/O CAD S/P BMS to LAD in 2007 Lyme screen negative Troponin negative Echo pending Continue aspirin, Plavix, Crestor Metoprolol held due to heart block Appreciate cardiology input Needs follow-up with cardiology on discharge Lung nodule Chronic per patient/family --CXR:Cardiomegaly and mild pulmonary edema. Right midlung density is again seen. If there is clinical suspicion for nodule, CT chest performed on a nonemergent basis. Advised to get a CT chest as outpatient Hypothyroidism: TSH elevated at 7, free T4 WNL on admission. Continue levothyroxine Recommend repeat thyroid function test in 4-6 weeks. 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 DVT Px: SCDs/TEDs for now. Code Status: FULL CODE Disposition: Home as able Admission and Anticipated Discharge Date Admission Date: June 08, 2024 Subjective Patient is seen and examined at bedside Had cardiac catheter today States feeling well post cardiac cath Denies any chest pain, dyspnea, nausea, vomiting, abdominal pain, dizziness Family at bedside Review of Systems Review of Systems: All systems reviewed & are unremarkable except as noted in Subjective Physical Exam Physical Exam: Physical Exam: Vitals signs as noted above General Appearance:Moderately built and nourished, no apparent distress Head: normocephalic, Atraumatic Eyes: normal inspection, EOMI Neck: supple, Trachea midline Respiratory/Chest: Normal breath sounds, CTA, No accessory muscle use Cardiovascular: S1, S2, No murmur Abdomen/GI:Soft, Non tender, Bowel sounds present Extremities/Musculoskeletal:normal inspection, no edema Neurologic/Psych:AAOX3, grossly no focal neurological deficits Skin: normal color, warm Results & Data Results & Data Vital Signs (Past 12 Hours) Vital Signs Temp Pulse Pulse Resp BP BP Pulse Ox 06/09/24 12:10 36.6 C 78 18 06/09/24 11:40 36.5 C 69 18 126/84 96 06/09/24 11:25 36.6 C 67 18 126/84 06/09/24 11:10 36.5 C 67 67 18 133/77 97 06/09/24 10:55 36.7 C 70 70 18 126/80 97 06/09/24 10:50 66 06/09/24 10:45 70 06/09/24 10:40 68 06/09/24 10:28 60 18 132/78 95 06/09/24 10:15 60 18 137/80 97 06/09/24 08:18 64 14 132/74 132/74 97 06/09/24 07:25 36.6 C 62 19 109/58 L 96 06/09/24 03:07 36.6 C 61 18 117/74 93 O2 Del Method 06/09/24 12:10 Room Air 06/09/24 11:40 Room Air 06/09/24 11:25 Room Air 06/09/24 11:10 Room Air 06/09/24 10:55 Room Air 06/09/24 10:50 06/09/24 10:45 06/09/24 10:40 06/09/24 10:28 Room Air 06/09/24 10:15 Room Air 06/09/24 08:18 Room Air 06/09/24 07:25 Room Air 06/09/24 03:07 Room Air Laboratory Results Short CBC 06/09/24 Range/Units 05:21 WBC 10.33 (4.8-10.8) K/ul Hgb 14.4 (14.0-18.0) g/dl Hct 41.8 L (42.0-52.0) % Plt Count 252 (130-400) K/uL BMP 06/09/24 05:21 Sodium 140 Potassium 4.1 Chloride 107 Carbon Dioxide 27 BUN 17 Creatinine 0.97 Glucose 94 Calcium 9.3 Liver Function 06/09/24 Range/Units 05:21 Total Bilirubin 1.0 (0.2-1.0) mg/dl AST 23 (13-39) U/L ALT 20 (7-52) U/L Alkaline Phosphatase 128 H (34-104) U/L Albumin 3.7 (3.4-5.0) gm/dl
--- NOTE | 2024-06-09 13:06 | Electrocardiogram Report ---
Test Reason : Blood Pressure : */* mmHG Vent. Rate : 63 BPM Atrial Rate : 63 BPM P-R Int : 172 ms QRS Dur : 154 ms QT Int : 428 ms P-R-T Axes : 44 72 4 degrees QTcB Int : 437 ms Normal sinus rhythm Right bundle branch block Septal infarct , age undetermined Abnormal ECG When compared with ECG of 09-Jun-2024 06:11, Septal infarct is now Present T wave inversion now evident in Anterior leads Confirmed by Doron Elizalde ([id number]) on 06/09/2024 1:06:00 PM Referred By: REFERRED SELF Confirmed By: Doron Elizalde
[2024-06-10 06:14] LABS: Hematocrit (blood only) 42.8 % (42.0-52.0); Hemoglobin 14.3 g/dl (14.0-18.0); Mean Corpuscular Hgb Conc 33.4 g/dL (32.0-36.0); Mean Corpuscular Volume 89.7 fL (80.0-100.0); Mean Platelet Volume 10.8 fL (9.4-12.4); Platelet Count 231 K/uL (130-400); RDW Coefficient of Variation 12.9 % (11.5-14.5); RDW Standard Deviation 42.5 fL (36.4-46.3); Red Blood Count 4.77 M/uL (4.70-6.10); White Blood Count 10.24 K/ul (4.8-10.8)
[2024-06-10 06:36] LABS: BUN Creatinine Ratio 19.1 (10-20); Chol HDL Ratio 3.7 (0-5); Creatinine Clr Calc Pharmacy 87.9 ml/min; Potassium 3.9 mmol/L (3.5-5.1)
[2024-06-10 07:06] LABS: Estimated Average Glucose 114 mg/dl; Hemoglobin A1C 5.6 % (4.5-5.6)
[2024-06-10] MEDS: CLOPIDOGREL BISULFATE 75 MG TAB PO SCH (08:21)
--- NOTE | 2024-06-10 10:40 | Hospitalist Progress Note ---
Date of Service June 10, 2024 Assessment & Plan (1) AV block: (2) Chest discomfort: Plan Krunal Escalante is a 68y/o M with PMHx significant for dyslipidemia, acquired hypothyroidism, prediabetes, HTN, history of [place] s/p LAD stenting [2007], CAD, GERD, BPH with LUTS and psoriasis who presented to the ED on 06/08/2024 for evaluation of chest discomfort and SOB with exertion since last . Severe LAD in-stent restenosis--POA S/P cardiac catheterization with successful PCI--new drug-eluting stent overlapping prior BMS Second-degree heart block H/O CAD S/P BMS to LAD in 2007 Lyme screen negative Troponin negative Echo obtained - LVEF 35-40%, septum/michel septum thinned and severely hypokinetic Continue aspirin, Plavix, Crestor Metoprolol held due to heart block Appreciate cardiology input Needs follow-up with cardiology on discharge 06/10 Discussing possibility of PPM tmrw- as per cardiology Lung nodule Chronic per patient/family --CXR:Cardiomegaly and mild pulmonary edema. Right midlung density is again seen. If there is clinical suspicion for nodule, CT chest performed on a nonemergent basis. Advised to get a CT chest as outpatient Hypothyroidism: TSH elevated at 7, free T4 WNL on admission. Continue levothyroxine Recommend repeat thyroid function test in 4-6 weeks. 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 DVT Px: SCDs/TEDs for now. Code Status: FULL CODE Disposition: Home as able Admission and Anticipated Discharge Date Admission Date: June 08, 2024 Subjective Patient seen in follow up of bradycardia S/p cardiac catheter yesterday States feeling well post cardiac cath Denies any fever, chills, chest pain, shortness of breath, dizziness, nausea or abdominal pain Pt's present at the bedside Review of Systems Review of Systems: All systems reviewed & are unremarkable except as noted in Subjective Physical Exam Physical Exam: General Appearance: Moderately built and nourished, no apparent distress Head: normocephalic, Atraumatic Eyes: normal inspection, EOMI Neck: supple Respiratory/Chest: Normal breath sounds, CTA, No accessory muscle use Cardiovascular: S1, S2, No murmur Abdomen/GI: Soft, Nontender, Bowel sounds present Extremities/Musculoskeletal: normal inspection, no edema Neurologic/Psych: AAOX3, speech fluent, answers appropriately, moves extremities Skin: warm, dry Results & Data Results & Data Vital Signs (Past 12 Hours) Vital Signs Temp Pulse Pulse Resp BP BP Pulse Ox 06/10/24 09:00 36.7 C 06/10/24 07:57 37.8 C H 40 L 18 109/63 96 06/10/24 07:12 44 L 06/10/24 04:21 36.8 C 40 L 18 100/54 L 97 06/09/24 23:04 36.4 C L 40 L 16 115/71 96 O2 Del Method 06/10/24 09:00 06/10/24 07:57 Room Air 06/10/24 07:12 06/10/24 04:21 Room Air 06/09/24 23:04 Room Air Laboratory Results 06/10/24 06/09/24 Range/Units 05:21 09:39 WBC 10.24 (4.8-10.8) K/ul RBC 4.77 (4.70-6.10) M/uL Hgb 14.3 (14.0-18.0) g/dl Hct 42.8 (42.0-52.0) % MCV 89.7 (80.0-100.0) fL MCH 30.0 (25.0-34.0) pg MCHC 33.4 (32.0-36.0) g/dL RDW Std Deviation 42.5 (36.4-46.3) fL RDW Coeff of Niki 12.9 (11.5-14.5) % Plt Count 231 (130-400) K/uL MPV 10.8 (9.4-12.4) fL Activ Coag Time Kaolin 287 H (94-140) SECONDS Sodium 138 (136-145) mmol/L Potassium 3.9 (3.5-5.1) mmol/L Chloride 106 (98-107) mmol/L Carbon Dioxide 25 (21-32) mmol/L Anion Gap 7 (3-11) BUN 17 (6-23) mg/dl Creatinine 0.89 (0.6-1.4) mg/dl Est Cr Clr Drug Dosing 87.9 ml/min eGFR 93.93 BUN/Creatinine Ratio 19.1 (10-20) Glucose 99 (70-99(Fasting)) mg/dl Estimat Average Glucose 114 mg/dl Hemoglobin A1c 5.6 (4.5-5.6) % Calcium 9.0 (8.6-10.3) mg/dl Magnesium 2.0 (1.7-2.4) mg/dl Triglycerides 111 (0-150) mg/dl Cholesterol 149 (0-200) mg/dl LDL Cholesterol, Calc 87 mg/dl VLDL Cholesterol, Calc 22 (0-30) mg/dl HDL Cholesterol 40 mg/dl Cholesterol/HDL Ratio 3.7 (0-5) Medications Administered Current Inpatient Medications Acetaminophen (Acetaminophen 325 Mg Tab) 650 mg PO Q4H PRN PRN Reason: Pain or Fever Stop: 07/08/24 15:53 Aspirin (Aspirin 81 Mg Ectab) 81 mg PO [facility] Stop: 07/08/24 20:59 Last Admin: 06/09/24 20:01 Dose: 81 mg Clopidogrel Bisulfate (Clopidogrel Bisulfate 75 Mg Tab) [facility] [place]: 07/10/24 08:59 Last Admin: 06/10/24 08:21 Dose: 75 mg Fluticasone Propionate (Fluticasone Propionate Na Spr 16 Gm Btl) 2 sprays NA QAM [facility] Stop: 07/09/24 08:59 Last Admin: 06/10/24 08:22 Dose: Not Given Levothyroxine Sodium (Levothyroxine Sodium 125 Mcg Tablet) 125 mcg PO DAILYBB [facility] Stop: 07/09/24 06:29 Last Admin: 06/10/24 05:36 Dose: 125 mcg Nitroglycerin (Nitroglycerin Sl 0.4 Mg/Tab Tab) 0.4 mg SL Q5M PRN PRN Reason: Chest Pain Stop: 07/08/24 15:53 Ondansetron HCl (Ondansetron Inj 2 Mg/Ml 2 Ml Vial) 4 mg IV Q6H PRN PRN Reason: Nausea Stop: 07/08/24 15:53 Pantoprazole Sodium (Pantoprazole 40 Mg Tab) 40 mg PO BID [facility] Stop: 07/08/24 20:59 Last Admin: 06/10/24 08:21 Dose: 40 mg Polyethylene Glycol (Polyethylene (Miralax) 17 Gm Pack) 17 gm PO DAILY PRN PRN Reason: Constipation Stop: 07/08/24 15:53 Rosuvastatin Calcium (Rosuvastatin Calcium 20 Mg Tab) 40 mg PO QPM [facility] Stop: 07/08/24 20:59 Last Admin: 06/09/24 20:00 Dose: 40 mg Tamsulosin HCl (Tamsulosin Hcl 0.4 Mg Cap) 0.4 mg PO QAM [facility] Stop: 07/09/24 08:59 Last Admin: 06/10/24 08:21 Dose: 0.4 mg
--- NOTE | 2024-06-10 15:16 | Cardiology Progress Note ---
Date of Service June 10, 2024 Assessment & Plan (1) Heart block AV second degree: Plan: 2. Cardiomyopathy -- LVEF 35-40% anteroseptal/septal severe hypokinesis 3. CAD post anterior [place] and prior BMS to LAD 2007 4. Hypertension 5. Dyslipidemia Recurrent 2-1 AV block overnight and this morning. Largely asymptomatic. Remains hemodynamically stable. No recurrence of prior angina, presyncope. No apparent exit site complications on exam. With recurrence of AV block and need for BB long-term, will ask EP to see patient for consideration of pacemaker/ICD tomorrow. Continue to monitor on telemetry Continue DAPT with aspirin, clopidogrel Continue current statin Plan to start low-dose ARB as BP allows Will follow Admission and Anticipated Discharge Date Admission Date: June 08, 2024 Subjective Feeling well today. Denies any chest pain. No presyncope breathing difficulties. Has been up and down to the bathroom multiple times without symptoms. Telemetry reviewedfrequent episodes of 2-1 AV block with heart rates in the 30s. Review of Systems Review of Systems: All systems reviewed & are unremarkable except as noted in HPI & below Physical Exam Physical Exam: General: Comfortable HEENT: Sclerae anicteric Lungs: Clear to auscultation bilaterally Cardiac: Regular rate and rhythm, no murmurs. Vascular: Right radial artery access site with no ecchymosis, hematoma. Distal pulse and sensation intact. Abdomen: Soft, nontender Extremities: Well perfused, no peripheral edema Neuro: Nonfocal Psych: Alert orient x3, normal affect and mood Results & Data Vital Signs (Past 12 Hours) Vital Signs Temp Pulse Pulse Resp BP BP Pulse Ox 06/10/24 14:27 46 L 06/10/24 11:44 97.3 F L 42 L 18 121/70 97 06/10/24 09:00 98.1 F 06/10/24 07:57 100.0 F H 40 L 18 109/63 96 06/10/24 07:12 44 L 06/10/24 04:21 98.2 F 40 L 18 100/54 L 97 O2 Del Method 06/10/24 14:27 06/10/24 11:44 Room Air 06/10/24 09:00 06/10/24 07:57 Room Air 06/10/24 07:12 06/10/24 04:21 Room Air PG Care Time/CCT Total # of Minutes Spent Total Time Spent with Patient: Total time spent is greater than 50% in coordination of care (as documented) at patient's floor/unit and/or counseling patient: Coding Level of Care Code 67910 SUB INP/OBS CARE 2/35MIN Diagnoses Heart block AV second degree I44.1
--- NOTE | 2024-06-10 15:18 | Electrocardiogram Report ---
Test Reason : Blood Pressure : */* mmHG Vent. Rate : 43 BPM Atrial Rate : 43 BPM P-R Int : 164 ms QRS Dur : 150 ms QT Int : 480 ms P-R-T Axes : 65 72 24 degrees QTcB Int : 405 ms Sinus rhythm with 2:1 A-V conduction Right bundle branch block Anterior infarct (cited on or before 09-Jun-2024) Abnormal ECG When compared with ECG of 09-Jun-2024 10:41, Questionable change in initial forces of Anterior leads Confirmed by Doron Elizalde ([id number]) on 06/10/2024 3:17:51 PM Referred By: REFERRED SELF Confirmed By: Doron Elizalde
[2024-06-11 06:08] LABS: Hematocrit (blood only) 39.9 % (42.0-52.0); Hemoglobin 14.2 g/dl (14.0-18.0); Mean Corpuscular Hemoglobin 31.1 pg (25.0-34.0); Mean Corpuscular Hgb Conc 35.6 g/dL (32.0-36.0); Mean Corpuscular Volume 87.5 fL (80.0-100.0); Mean Platelet Volume 10.6 fL (9.4-12.4); Platelet Count 234 K/uL (130-400); RDW Coefficient of Variation 12.9 % (11.5-14.5); RDW Standard Deviation 41.3 fL (36.4-46.3); Red Blood Count 4.56 M/uL (4.70-6.10); White Blood Count 9.51 K/ul (4.8-10.8)
[2024-06-11 06:30] LABS: BUN Creatinine Ratio 19.5 (10-20); Calcium 8.9 mg/dl (8.6-10.3); Creatinine Clr Calc Pharmacy 89.9 ml/min; Phosphorus 3.4 mg/dl (2.5-4.9); Potassium 3.9 mmol/L (3.5-5.1)
--- NOTE | 2024-06-11 10:57 | Hospitalist Progress Note ---
Date of Service June 11, 2024 Assessment & Plan (1) AV block: (2) Chest discomfort: Plan Krunal Escalante is a 68y/o M with PMHx significant for dyslipidemia, acquired hypothyroidism, prediabetes, HTN, history of [place] s/p LAD stenting [2007], CAD, GERD, BPH with LUTS and psoriasis who presented to the ED on 06/08/2024 for evaluation of chest discomfort and SOB with exertion since last . Severe LAD in-stent restenosis--POA S/P cardiac catheterization with successful PCI--new drug-eluting stent overlapping prior BMS Second-degree heart block H/O CAD S/P BMS to LAD in 2007 Lyme screen negative Troponin negative Echo obtained - LVEF 35-40%, septum/michel septum thinned and severely hypokinetic Continue aspirin, Plavix, Crestor Metoprolol held due to heart block Appreciate cardiology input Needs follow-up with cardiology on discharge As per cardiology - plan for EP eval today and poss. PPM placement (06/11/2024) Lung nodule Chronic per patient/family --CXR:Cardiomegaly and mild pulmonary edema. Right midlung density is again seen. If there is clinical suspicion for nodule, CT chest performed on a nonemergent basis. Advised to get a CT chest as outpatient Hypothyroidism: TSH elevated at 7, free T4 WNL on admission. Continue levothyroxine Recommend repeat thyroid function test in 4-6 weeks. 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 DVT Px: SCDs/TEDs for now. Code Status: FULL CODE Disposition: Home as able Admission and Anticipated Discharge Date Admission Date: June 08, 2024 Subjective Patient seen in follow up of bradycardia S/p cardiac catheter, plan for EP eval today Only ambulated to bathroom so far Denies any fever, chills, chest pain, shortness of breath, dizziness, nausea or abdominal pain Pt's present at the bedside Review of Systems Review of Systems: All systems reviewed & are unremarkable except as noted in Subjective Physical Exam Physical Exam: General Appearance: Moderately built and nourished, no apparent distress Head: normocephalic, Atraumatic Eyes: normal inspection, EOMI Neck: supple Respiratory/Chest: Normal breath sounds, CTA, No accessory muscle use Cardiovascular: S1, S2, No murmur Abdomen/GI: Soft, Nontender, Bowel sounds present Extremities/Musculoskeletal: normal inspection, no edema Neurologic/Psych: AAOX3, speech fluent, answers appropriately, moves extremities Skin: warm, dry Results & Data Results & Data Vital Signs (Past 12 Hours) Vital Signs Temp Pulse Pulse Resp BP Pulse Ox O2 Del Method 06/11/24 10:36 36.8 C 67 16 113/66 95 Room Air 06/11/24 07:56 36.4 C L 65 19 147/79 H 98 Room Air 06/11/24 07:00 64 06/11/24 03:37 36.7 C 40 L 16 102/62 97 Room Air 06/10/24 23:03 41 L Laboratory Results 06/11/24 Range/Units 05:17 WBC 9.51 (4.8-10.8) K/ul RBC 4.56 L (4.70-6.10) M/uL Hgb 14.2 (14.0-18.0) g/dl Hct 39.9 L (42.0-52.0) % MCV 87.5 (80.0-100.0) fL MCH 31.1 (25.0-34.0) pg MCHC 35.6 (32.0-36.0) g/dL RDW Std Deviation 41.3 (36.4-46.3) fL RDW Coeff of Niki 12.9 (11.5-14.5) % Plt Count 234 (130-400) K/uL MPV 10.6 (9.4-12.4) fL Sodium 138 (136-145) mmol/L Potassium 3.9 (3.5-5.1) mmol/L Chloride 108 H (98-107) mmol/L Carbon Dioxide 23 (21-32) mmol/L Anion Gap 7 (3-11) BUN 17 (6-23) mg/dl Creatinine 0.87 (0.6-1.4) mg/dl Est Cr Clr Drug Dosing 89.9 ml/min eGFR 94.57 BUN/Creatinine Ratio 19.5 (10-20) Glucose 97 (70-99(Fasting)) mg/dl Calcium 8.9 (8.6-10.3) mg/dl Phosphorus 3.4 (2.5-4.9) mg/dl Magnesium 2.0 (1.7-2.4) mg/dl Medications Administered Current Inpatient Medications Acetaminophen (Acetaminophen 325 Mg Tab) 650 mg PO Q4H PRN PRN Reason: Pain or Fever Stop: 07/08/24 15:53 Aspirin (Aspirin 81 Mg Ectab) 81 mg PO HS [facility] Stop: 07/08/24 20:59 Last Admin: 06/10/24 21:13 Dose: 81 mg Clopidogrel Bisulfate (Clopidogrel Bisulfate 75 Mg Tab) [facility] [place] Stop: 07/10/24 08:59 Last Admin: 06/11/24 08:06 Dose: 75 mg Fluticasone Propionate (Fluticasone Propionate Na Spr 16 Gm Btl) 2 sprays NA [facility] Stop: 07/09/24 08:59 Last Admin: 06/11/24 08:06 Dose: 2 sprays Levothyroxine Sodium (Levothyroxine Sodium 125 Mcg Tablet) 125 mcg PO DAILYBB [facility] Stop: 07/09/24 06:29 Last Admin: 06/11/24 05:23 Dose: 125 mcg Nitroglycerin (Nitroglycerin Sl 0.4 Mg/Tab Tab) 0.4 mg SL Q5M PRN PRN Reason: Chest Pain Stop: 07/08/24 15:53 Ondansetron HCl (Ondansetron Inj 2 Mg/Ml 2 Ml Vial) 4 mg IV Q6H PRN PRN Reason: Nausea Stop: 07/08/24 15:53 Pantoprazole Sodium (Pantoprazole 40 Mg Tab) 40 mg PO BID [facility] Stop: 07/08/24 20:59 Last Admin: 06/11/24 08:06 Dose: 40 mg Polyethylene Glycol (Polyethylene (Miralax) 17 Gm Pack) 17 gm PO DAILY PRN PRN Reason: Constipation Stop: 07/08/24 15:53 Rosuvastatin Calcium (Rosuvastatin Calcium 20 Mg Tab) 40 mg PO QPM [facility] Stop: 07/08/24 20:59 Last Admin: 06/10/24 21:13 Dose: 40 mg Tamsulosin HCl (Tamsulosin Hcl 0.4 Mg Cap) 0.4 mg PO QAM [facility] Stop: 07/09/24 08:59 Last Admin: 06/11/24 08:06 Dose: 0.4 mg
--- NOTE | 2024-06-11 12:01 | Pre Anesthesia Assessment ---
Date of Service June 11, 2024 Pre Sedation Assessment Vital Signs Temp Pulse Pulse Resp BP BP Pulse Ox 06/11/24 10:36 36.8 C 67 16 113/66 95 06/11/24 07:56 36.4 C L 65 19 147/79 H 98 06/11/24 07:00 64 06/11/24 03:37 36.7 C 40 L 16 102/62 97 06/10/24 23:03 41 L 06/10/24 22:35 36.6 C 65 16 98/53 L 95 06/10/24 19:56 36.7 C 63 19 148/79 H 98 06/10/24 15:30 36.3 C L 65 18 144/77 H 97 06/10/24 14:27 46 L O2 Del Method 06/11/24 10:36 Room Air 06/11/24 07:56 Room Air 06/11/24 07:00 06/11/24 03:37 Room Air 06/10/24 23:03 06/10/24 22:35 Room Air 06/10/24 19:56 Room Air 06/10/24 15:30 Room Air 06/10/24 14:27 Cardiovascular + regular rate and + regular rhythm Respiratory + respiratory effort normal Pre-Sedation Airway Assessment Smoking Status: Former smoker Hx Sleep Apnea: No Hx Difficult Intubation: No Short, Thick Neck: No Thyromental Distance: > or= 3.5 Finger Breadths Oral Cavity: + Dentures Mallampati Class: III ASA: ASA3 NPO Status Date of Last Intake of Fluids: 06/10/24 Time of Last Intake of Fluids: 20:00 Date of Last Intake of Solid Food: 06/10/24 Time of Last Intake of Solid Foods: 20:00 Procedure Planning Contraindications for Sedation: none Current Medications Reviewed: Yes Notes The planned sedation has been discussed with the patient. Informed Consent was obtained. I have identified the patient, determined the appropriateness of sedation and have assessed the patient immediately prior to the procedure. All medicine(s) and interventions are by my order.
[2024-06-11] MEDS: LIDOCAINE 1% LOCAL 20 ML VIAL ONE (12:02)
[2024-06-11] MEDS: BUPIVACAINE 0.25% PF 30 ML VIAL ONE (12:02)
[2024-06-11] MEDS: VANCOMYCIN HCL 1000MG/20ML VIAL ONE (12:02)
[2024-06-11] MEDS: WATER, STERILE FOR INJ 10 ML VIAL ONE (12:02)
[2024-06-11] MEDS: ceFAZolin 330 MG/ML 1 GM VIAL ONE (12:03)
[2024-06-11] MEDS: fentaNYL citrate PF 100 MCG/2 ML VIAL ONE ×2 (12:46→13:19)
[2024-06-11] MEDS: MIDAZOLAM HCL 5 MG/ML 1 ML VIAL ONE (13:19)
[2024-06-11] MEDS ORDERED: oxyCODONE HCL IR 5 MG TAB (IMMEDIATE RELEASE) PO PRN (13:36)
--- NOTE | 2024-06-11 13:36 | Electrophysiology Report ---
Date of Service June 11, 2024 Electrophysiology Procedure Electrophysiology Procedure Report Procedure performed: Implantation of dual-chamber permanent pacemaker with left bundle pacing lead Staff hatchery man: Jabier Kelly MD Indication: The patient is a 68-year-old gentleman with a history of second- degree AV block. He was symptomatic from the associated bradycardia. There were no reversible causes identified. He was therefore felt to be a good candidate for a permanent pacemaker due to symptomatic nonreversible AV node dysfunction. A dual-chamber device was selected as he is currently in sinus rhythm and wished to maintain AV synchrony. Procedure in detail: The patient was informed of the risks benefits and alternatives to the intended procedure and she wished to proceed. He was taken to the electrophysiology suite in a fasting state. A preoperative antibiotic had been administered. The patient was monitored electrocardiographically throughout today's procedure and conscious sedation was administered per protocol. The left upper pectoral area was prepped and draped in usual sterile fashion. This area was anesthetized using subcutaneous administration of a xylocaine solution. An incision was made at this site and carried down to the prepectoralis fascia using sharp dissection. Electrocautery was also employed for dissection as well as for hemostasis. A device pocket was fashioned tissues above the pectoralis muscle. Subsequent to this maneuver the left axillary vein was accessed using modified Seldinger technique. A sheath was placed over guidewire and used to facilitate passage of a guiding catheter for mapping of the interventricular septum. Once an appropriate location was identified a pacing lead was advanced into the interventricular septum until the appropriate electrophysiologic characteristics were obtained. At this point the guiding catheter was removed. The proximal portion of the lead was then sutured the prepectoralis fascia using nonabsorbable suture. A sheath was placed over the remaining guidewire and used to facilitate passage of a pacing lead to the right atrium under fluoroscopic guidance. Adequate sensing and threshold parameters were obtained prior to active fixation of this lead to the endocardial surface. The proximal portion of the leads were then sutured the prepectoral fascia using nonabsorbable suture. The device pocket was irrigated with antibiotic solution. The leads were then attached to the device. The device and leads were then placed in the pocket and pocket was closed in 3 layers of absorbable suture. Steri-Strips and sterile dressing were applied. The device was tested noninvasively prior to conclusion the procedure. The patient tolerated procedure well there no immediate complications. Equipment used: New pulse generator: [employer]st [employer]. Model number: [id number] serial number [id number] Right atrial lead: [employer]. Model number: [id number] serial number [id number] Right ventricular lead: [employer]st [employer]. Model number: 3830 serial number [id number] Measured data: Right atrial lead: P waves measured 2.4 mV. Pacing threshold was 1.25 V at 0.4 ms with a pacing impedance of 475 ohms Right ventricular lead: R waves measured 12.9 mV. Pacing threshold was 0.75 V at 0.4 ms with a pacing impedance of 741 ohms Impression: Successful implantation of dual-chamber permanent pacemaker with left bundle pacing lead [facility] Electrophysiology codes Pacing Procedure 1: Pacin Insert/Replace Pacer A & V PG Moderate Sedation Codes Moderate Sedation Codes Procedure 1: Sedation/Anesthesia: 32566 Mod Sedation by the same physician;Init15 Min Child Age 5 & Up Procedure 2: Sedation/Anesthesia: 71585 Mod Sedation by the same physician; Ea [id number] Minutes
--- NOTE | 2024-06-11 13:36 | Post Anesthesia Assessment ---
Date of Service June 11, 2024 Post Sedation Assessment Vital Signs Temp Pulse Pulse Resp BP BP Pulse Ox 06/11/24 10:36 36.8 C 67 16 113/66 95 06/11/24 07:56 36.4 C L 65 19 147/79 H 98 06/11/24 07:00 64 06/11/24 03:37 36.7 C 40 L 16 102/62 97 06/10/24 23:03 41 L 06/10/24 22:35 36.6 C 65 16 98/53 L 95 06/10/24 19:56 36.7 C 63 19 148/79 H 98 06/10/24 15:30 36.3 C L 65 18 144/77 H 97 06/10/24 14:27 46 L O2 Del Method 06/11/24 10:36 Room Air 06/11/24 07:56 Room Air 06/11/24 07:00 06/11/24 03:37 Room Air 06/10/24 23:03 06/10/24 22:35 Room Air 06/10/24 19:56 Room Air 06/10/24 15:30 Room Air 06/10/24 14:27 Recovery Score Activity: Moves 4 extremities Respiration: Deep Breath/Cough Circulation: +/-20% PreAnes Value Consciousness: Arouseable (by name) Oxygen Saturation: O2 needed for >90% Post Anesthesia Score: 10 Discharge Sedation Level of Care: Fast Track Phase II Post Sedation Plan On clinical assessment, the patient appears to have tolerated the sedation without complications. Patient is recovering as anticipated. Patient will continue to be monitored by nursing and may be discharged when sedation discharge criteria are met per below protocol. Upon Completions of procedure up to 15 minutes continue every 5 minute vital signs and the P.A.R. score; then discharge to a Phase I or Fast Track to Phase II per the following guidelines: * Discharge Patient to appropriate Phase II area if PAR is 8 or greater or return to pre- procedure baseline. The post - procedure orders will be as directed. * If PAR score is less than 8 or not return to pre-procedure baseline then patient will follow Phase I monitoring till PAR is reached for Phase II. The Phase I may be done in procedure room or may call to secure a Phase I area. * If naloxone or flumazenil are used for reversal, hold in Phase I for continued monitoring from when last reversal dose was given for a minimum of 60 minutes or longer pending the nurse and/or physician discretion of patient condition before discharge to Phase II. Please call the Sedation Physician to re-evaluate and complete post-note for discharge to Phase II area. Do NOT discharge from procedure sedation or Phase 1 until post- sedation evaluation note is complete by procedure /sedation MD Sedation Discharge Instructions to be given to the patient at discharge to home.
--- NOTE | 2024-06-11 15:39 | Electrocardiogram Report ---
Test Reason : Blood Pressure : */* mmHG Vent. Rate : 80 BPM Atrial Rate : 80 BPM P-R Int : 152 ms QRS Dur : 158 ms QT Int : 454 ms P-R-T Axes : 53 -46 96 degrees QTcB Int : 523 ms Atrial-sensed ventricular-paced rhythm Abnormal ECG When compared with ECG of 10-Jun-2024 05:32, Electronic ventricular pacemaker has replaced Sinus rhythm Vent. rate has increased by 37 bpm Confirmed by Doron Elizalde ([id number]) on 06/11/2024 3:38:28 PM Referred By: REFERRED SELF Confirmed By: Doron Elizalde
[2024-06-11] MEDS: ACETAMINOPHEN 325 MG TAB PO PRN (15:43)
[2024-06-11] MEDS: ceFAZolin 2000MG 2,000 MG/15 ML SYR IV ONE (20:52)
[2024-06-12 06:09] LABS: Hematocrit (blood only) 39.3 % (42.0-52.0); Mean Corpuscular Hemoglobin 30.9 pg (25.0-34.0); Mean Corpuscular Hgb Conc 35.6 g/dL (32.0-36.0); Mean Corpuscular Volume 86.8 fL (80.0-100.0); Platelet Count 221 K/uL (130-400); RDW Coefficient of Variation 12.7 % (11.5-14.5); RDW Standard Deviation 39.9 fL (36.4-46.3); Red Blood Count 4.53 M/uL (4.70-6.10); White Blood Count 12.93 K/ul (4.8-10.8)
[2024-06-12 06:36] LABS: BUN Creatinine Ratio 17.7 (10-20); Calcium 8.8 mg/dl (8.6-10.3); Creatinine Clr Calc Pharmacy 99.3 ml/min; Magnesium 1.9 mg/dl (1.7-2.4); Phosphorus 2.9 mg/dl (2.5-4.9); Potassium 3.9 mmol/L (3.5-5.1)
[2024-06-12 07:54] VITALS: BP 119/76; TEMP 98.2; O2SAT 95
--- NOTE | 2024-06-12 09:11 | Cardiology Progress Note ---
Date of Service June 12, 2024 Assessment & Plan (1) Heart block AV second degree: Plan: 2. Cardiomyopathy -- LVEF 35-40% anteroseptal/septal severe hypokinesis 3. CAD post anterior [place] and prior BMS to LAD 2007 4. Hypertension 5. Dyslipidemia He appears to have undergone a successful dual-chamber pacemaker implant yesterday. No evident complication. He should refrain from lifting left arm above the shoulder for 6 weeks. He should keep the wound dry and Steri-Strips intact until follow-up which I will arrange in the clinic next week He will need to continue aspirin and Plavix I will order him metoprolol succinate 25 mg daily He seems well compensated and would likely be stable for discharge today. No vigorous use of the right wrist or hand or lifting greater than 5 lb for another 5 days. I think we could see him in the outpatient setting and reassess his LV function now that he has had revascularization. Without improvement he would be a good candidate for an SG LT 2 inhibitor and Entresto. Admission and Anticipated Discharge Date Admission Date: June 08, 2024 Subjective This morning the patient claimed he feeling well. He was ambulatory to the bathroom few times without symptoms of dizziness. Some mild discomfort at the device implant site. Better now that the pressure dressing has been removed. Physical Exam Physical Exam: The patient is comfortable. Alert. Normal respiratory effort Device implant site well healed without hematoma or drainage. No erythema. Results & Data Vital Signs (Past 12 Hours) Vital Signs Temp Pulse Pulse Resp BP Pulse Ox O2 Del Method 06/12/24 07:53 36.8 C 74 20 119/76 95 Room Air 06/12/24 07:00 67 06/12/24 03:33 37.0 C 80 19 104/70 96 Room Air 06/12/24 00:00 82 06/11/24 23:07 82 06/11/24 22:30 37.2 C 79 17 113/69 95 Room Air Laboratory Results Abnormal Lab Results 06/12/24 05:18 WBC 12.93 H RBC 4.53 L Hgb 14.0 Hct 39.3 L MCV 86.8 MCH 30.9 MCHC 35.6 RDW Std Deviation 39.9 RDW Coeff of Niki 12.7 Plt Count 221 MPV 11.0 Sodium 137 Potassium 3.9 Chloride 106 Carbon Dioxide 24 Anion Gap 7 BUN 14 Creatinine 0.79 Est Cr Clr Drug Dosing 99.3 eGFR 97.37 BUN/Creatinine Ratio 17.7 Glucose 105 H Calcium 8.8 Phosphorus 2.9 Magnesium 1.9 Diagnostic Findings Chest x-ray demonstrated stable lead position without pneumothorax Device interrogation revealed good function of both the atrial ventricular leads.
--- NOTE | 2024-06-12 09:28 | XRay Report ---
XR chest 2V PA/lateral HISTORY: 68 years-old Male EXACT TIME ORDERED Evaluate for pneumothorax and l status post placement of a dual lead left subclavian pacer COMPARISON: 06/08/2024 TECHNIQUE: PA and lateral views of the chest FINDINGS: Cardiomediastinal and hilar silhouettes are unchanged. Status post placement of a dual lead left subc lavian pacer. No pneumothorax, pleural effusion or pulmonary edema. Bones appear grossly intact. IMPRESSION: Status post placement of a dual-lead left subclavian pacer. No postprocedural pneumothora x. ACT 112: Negative or not required by law. The above report was generated using voice recognition software. It may contain grammatical, syntax o r spelling errors. Electronically signed by: Laurent Montelongo M.D. 06/12/2024 9:26 AM
--- NOTE | 2024-06-12 09:47 | Discharge Summary ---
Date of Service June 12, 2024 Admission HPI Per Admitting Provider Krunal Escalante is a 68y/o M with PMHx significant for dyslipidemia, acquired hypothyroidism, prediabetes, HTN, history of SD s/p LAD stenting [2008], CAD, GERD, BPH with LUTS and psoriasis who presented to the ED on 06/08/2024 for evaluation of chest discomfort and SOB with exertion. History obtained from patient and associated chart review. Patient with episodes of chest tightness and SOB with exertion since last . Reports this typically occurs when he first starts to exert himself and typically subsides as he continues to move. However this does not occur every time he moves. Denies that this ever occurs at rest. He was shopping in the grocery store this morning when he had 2 separate episodes of this chest tightness with associated shortness of breath. These episodes only lasted approximately 10 to 15 seconds when he had some lightheadedness during these episodes as well. Patient reports that he typically does have lightheadedness during these events, however he denies any recent falls or syncopal events. He denies ever having any episodes like this before. He is a former smoker but stopped in 2011. Reports rare alcohol use. No recent medication changes. Denies any fevers, sinus congestion, cough or urinary/bowel habit changes. He has been following with Dr. Ortega since the 1999s. Patient with a on 2:1 AV block on the monitor with exertion in the ED. No history of pacemaker placement. Admission Exam Per Admitting Provider General: WD/WN, vitals as above, NAD, sitting up in bed, pleasant, conversing appropriately. A+Ox3, euthymic affect. HEENT: Normocephalic, atraumatic. PERRL, conjunctivae normal, anicteric sclerae. External ear and nose normal, oropharynx normal. Respiratory: Normal respiratory effort, lungs clear to auscultation, no wheeze, rales, rhonchi. No accessory muscle use. Cardiovascular: Regular rate, rhythm, no murmur, normal peripheral pulses, no BLE edema. Vessels: No JVD. Abdomen/GI: Normal bowel sounds, soft, nontender, no hepatosplenomegaly. Extremities/Musculoskeletal: No cyanosis or clubbing, extremities motor strength intact, moves all extremities. Neurologic: EOMI, no focal deficits, CN's II-XI not formally tested but appear grossly intact bilaterally. Skin: No rashes, normal color, warm/dry. Principal Diagnosis Heart block 2nd degree Severe LAD in-stent restenosis Discharge Exam General Appearance: Moderately built and nourished, no apparent distress Head: normocephalic, Atraumatic Eyes: normal inspection, EOMI Neck: supple Respiratory/Chest: Normal breath sounds, CTA, No accessory muscle use Cardiovascular: S1, S2, regular, No murmur Abdomen/GI: Soft, Nontender, Bowel sounds present Extremities/Musculoskeletal: normal inspection, no edema Neurologic/Psych: AAOX3, speech fluent, answers appropriately, moves extremities Skin: warm, dry Discharge Data Allergies Allergy/AdvReac Type Severity Reaction Status Date / Time No Known Allergies Allergy Mild Verified 06/08/24 12:42 Consultations 06/08/24 12:15 ED Decision to Admit Stat 06/08/24 12:52 Consult Cardiology Routine Procedures Performed Operation Date: 06/11/24 12:00 Actual Procedures p Pacer with A/V Leads (Dual) - Jabier Kelly MD Ordered Studies 06/09/24 08:02 CL Cath Imgs for PACS use only Routine 06/09/24 10:20 CL IVUS Coronary Single Vessel Routine 06/11/24 11:45 EP Lab Images for PACS ONCE Hospital Course (1) Status post placement of cardiac pacemaker: (2) Heart block AV second degree: (3) Chest discomfort: (4) Presence of bare metal stent in LAD coronary artery: (5) Coronary artery disease: Savannah Escalante is a 68y/o M with PMHx significant for dyslipidemia, acquired hypothyroidism, prediabetes, HTN, history of SD s/p LAD stenting [2007], CAD, GERD, BPH with LUTS and psoriasis who presented to the ED on 06/08/2024 for evaluation of chest discomfort and SOB with exertion since last . Severe LAD in-stent restenosis--POA S/P cardiac catheterization with successful PCI--new drug-eluting stent overlapping prior BMS (Dr. Noriega) H/O CAD S/P BMS to LAD in 2007 Second-degree heart block - now s/p Implantation of dual-chamber permanent pacemaker with left bundle pacing lead (06/11/24 w/ Dr. Kelly) Lyme screen negative Troponin negative Echo obtained - LVEF 35-40%, septum/michel septum thinned and severely hypokinetic Continue aspirin, Plavix, Crestor Metoprolol held due to heart block - now resumed Appreciate cardiology input Needs follow-up with cardiology on discharge Lung nodule Chronic per patient/family --CXR:Cardiomegaly and mild pulmonary edema. Right midlung density is again seen. If there is clinical suspicion for nodule, CT chest performed on a nonemergent basis. Advised to get a CT chest as outpatient Hypothyroidism: TSH elevated at 7, free T4 WNL on admission. Continue levothyroxine Recommend repeat thyroid function test in 4-6 weeks. 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 Total Time Total Time Spent Total Time Spent (In Minutes): 40 Discharge Plan Discharge Items Patient Disposition: Home - Self-Care Reason For Visit: CHEST PAIN, HEART BLOCK Discharge Diagnosis: Heart block 2nd degree Severe LAD in-stent restenosis Activity: Per Instructions section Lifting Comment: No lifting left arm above shoulder or behind neck for 6 weeks Bathing: Keep incision dry Bathing Comment: Keep wound dry and steri-strip intact until f/u Non-emergency contact: Primary Care Provider and Appliances Sample Maker Call non-emergency contact if: you have any medication questions and your symptoms worsen Follow-up/Referrals: Gonzalo Taylor MD [Primary Care Provider] - (Date & Time 06/17/2024 12:20 PM Provider Gonzalo Taylor MD Department Family Practice [facility] ) Diet: Heart Healthy Addtl Attending Provider Instructions: Follow up with your primary care doctor and scow captain. Take aspirin and plavix daily as prescribed. Continue taking your crestor. Your metoprolol dose was increased to 25 mg. Pending Studies at Discharge: No Stand-Alone Forms: My [employer], Smoking Cessation Medications and DC Order Prescriptions: New clopidogrel 75 mg Tablet 75 mg PO QAM Qty: 30 0RF nitroglycerin [Nitrostat] 0.4 mg Tablet, Sublingual 0.4 mg sublingual Q5M PRN (Reason: chest pain) Qty: 7 0RF oxycodone 5 mg Tablet 5 mg PO Q4H PRN (Reason: pain) Qty: 7 0RF metoprolol succinate 25 mg Tablet Extended Release 24 Hr 25 mg PO QAM Qty: 30 0RF Continued nitroglycerin 0.4 mg tablet, sublingual 0.4 mg SL Q5M PRN (Reason: chest pain) Qty: 30 1RF pantoprazole 40 mg tablet,delayed release (DR/EC) 40 mg PO BID Qty: 180 3RF rosuvastatin [Crestor] 40 mg tablet 40 mg PO QPM Qty: 90 3RF Tremfya 100 mg/mL syringe 100 mg subcut .COMPLEX Patient Comments: 100 mg subcut one shot every 8 weeks Rx Instructions: 100 mg subcut one shot every 8 weeks tamsulosin 0.4 mg capsule 0.4 mg PO QAM aspirin 81 mg Tablet,Delayed Release (Dr/Ec) 81 mg PO HS levothyroxine 125 mcg tablet 125 mcg PO QAM fluticasone propionate 50 mcg/actuation spray,suspension 2 spray INTRANASAL QAM Discontinued metoprolol succinate 25 mg tablet extended release 24 hr 12.5 mg PO DAILY Qty: 45 3RF Discharge Orders: Discharge Order (Routine); Ordered 06/12/24 Ordered By: Cooper Doyle Admission Data Admit Date/Time: 06/08/24 12:20 Attending Provider: Cooper Dyole Admit Provider: Chuckie Ramirez Primary Care Provider: Gonzalo Taylor Other Providers: Chuckie Ramirez; Jabier Noriega; Adal Connors
[2024-06-12 09:56] VITALS: RESP 16
[2024-06-12 10:06] VITALS: PULSE 80
[2024-06-12] MEDS: METOPROLOL SUCC 25MG EXT REL TAB PO SCH (10:16)
== END 2024-06-12 10:35 | disposition home or self-care (01) | DRG 243 ==
LOC: ED 09:19 → SUATTDRO 12:20 → 2S 12:20